=== PATIENT | male | born 1950 | race Caucasian/White ===

== ENCOUNTER 2024-08-16 10:41 | Day surgery (SDC) | payer MEDICARE, OTHER, SELFPAY ==
[2024-08-16] VITALS (9 sets, daily range): BP systolic 126–158; BP diastolic 64–134; BMI 31.2
[2024-08-16] MEDS: NSS 313 ML IV (11:31)
--- NOTE | 2024-08-16 16:02 | CONSULT.STRU ---
Consultation
-
Date/Time Consultation Requested: 08/16/2024
Date/Time Consultation Performed: 08/16/2024
Requesting Provider: Kar Estrella
Performing Provider: SUDHAKAR Farnsworth
Reason for Consultation: Aortic stenosis
Patient History
Physicians
Family Physician: Shanon Rios
Outpatient Nuclear Radiation Engineer: Jaun Rincon
Primary Nuclear Radiation Engineer: Jaun Rincon
History of Present Illness
Mr. Pabon is a 74 year old man with history significant for HTN, HLD, pre DM, referred for evaluation of severe symptomatic aortic stenosis. He was recently noted to have a murmur for the first time, which led to a follow up echocardiogram
demonstrating high gradient aortic stenosis. Notable for AV PG/M/66, HANS: 0.85, No AI, EF: 65-70%. He does not exercise, but notes that compared to 6-12 months ago, he is more winded with moderate activity such as carrying heavy objects up
stairs.�He also complains of heaviness in his chest with this exertion. He denies lightheadedness/dizziness/syncope, orthopnea, LE edema. He does not recall ever being told he had a heart murmur before recently. Patient underwent cardiac cath today
with minimal coronary disease.
Reviewed the pathophysiology of aortic stenosis. Discussed treatment options including SAVR and TAVR. Explained lifetime planning when discussing treatment options. Reviewed evaluation process of follow up BMP, CT TAVR scan, CT surgery consult and
Heart Team discussion. Scheduled his CT scan and surgery consult appointments. Allowed for and answered questions.
Past Medical History
Past Medical History: CAD, HTN, Psychiatric (generalized anxiety disorder) and Other (Osteoarthritis, Nephrolithiasis)
Past Surgical History
Past Surgical History: Orthopedic (L-SUSAN) and Other (hernia repair, umbilical hernia repair)
Dental History
Regular Dental Care: Dr. Douglas Ladd
Family History
Mother: at Age (81yo)
Father: at Age (72yo)
Social History
Alcohol: Daily
Drug: None
Tobacco: Former Smoker
Personal:
Living: With Spouse
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
Allergies
Allergy/AdvReac Type Severity Reaction Status Date / Time
No Known Drug Allergies Allergy Unknown Verified 08/16/24 11:11
Home Medications
�Medication �Instructions �Recorded �Confirmed �Type
atorvastatin 10 mg tablet 10 mg PO DAILY 08/16/24 08/16/24 History
doxycycline hyclate 20 mg tablet 20 mg PO BID 08/16/24 08/16/24 History
escitalopram oxalate 10 mg tablet 10 mg PO DAILY 08/16/24 08/16/24 History
valsartan 80 mg tablet 80 mg PO DAILY 08/16/24 08/16/24 History
STS%
STS %: 0.989%
Review of Systems
-
History Source: Patient
General: Reports No Symptoms; Denies Fever, Weight Gain, Weight Loss or Fatigue
HEENT: Reports No Symptoms
Respiratory: Reports MELGAR; Denies PND
Cardiac: Reports Palpitations (occasional 'fluttering') and Other (chest heaviness when he is experiencing MELGAR); Denies Edema
Abdomen/GI: Reports No Symptoms; Denies Abdominal Pain, Reflux, Indigestion, Nausea or Vomiting
: Reports No Symptoms
Musculoskeletal: Reports No Symptoms
Skin: Reports No Symptoms
Neurological: Reports No Symptoms; Denies CVA, TIA, Headaches, Syncope or Dizzy
Vascular: Reports No Symptoms; Denies Claudication
Physical Exam
Vital Signs
Temp 98.0 F 08/16/24 11:10
Temp route: Temporal 08/16/24 11:10
Pulse 75 08/16/24 11:10
Resp Rate 18 08/16/24 11:10
Blood pressure 128/75 08/16/24 11:10
Blood pressure extremity used: Left upper arm 08/16/24 11:10
Position: Lying 08/16/24 11:10
SaO2 97 08/16/24 11:10
Oxygen Mode of Delivery Room air 08/16/24 11:10
Can the patient verbally communicate their pain? Yes 08/16/24 11:10
Actual Weight 104.32 kg 08/16/24 11:10
Body Mass Index (BMI) 31.2 08/16/24 11:10
Labs
08/10/2024:
H/H: 14.6/43.2
WBC: 8.3
Platelets: [id number]
BUN/Creat: 16/0.91
GFR: >89
Diagnostic Studies
08/01/2024 Echocardiogram:
CONCLUSIONS
Technically limited and suboptimal study.
Mildly dilated aortic root with other chamber sizes normal.
Mild concentric LVH by visual inspection.
Normal right and normal to hyperdynamic left ventricular systolic function.
Grade 1 diastolic dysfunction.
Severe aortic stenosis with no aortic insufficiency.
Indications:
Cardiac murmur, unspecified, Nonrheumatic aortic (valve) stenosis
Rhythm: Sinus
Portable Study:
Technical Quality: Technically difficult study
Contrast: None
BP: 130 / 70
PROCEDURE
A complete Transthoracic Echocardiogram was performed utilizing two-dimensional
evaluation with color flow and spectral Doppler analysis.
FINDINGS
Left Ventricle
Normal left ventricular size and by visual inspection there appeared to be mild
concentric LVH. Normal to hyperdynamic left ventricular systolic function and
wall motion. Estimated ejection fraction range of 65 to 70%. Grade 1
diastolic dysfunction.
Right Ventricle
Normal right ventricular size and systolic function.
Left Atrium
Normal left atrial size.
Right Atrium
Normal right atrial size.
Mitral Valve
Mitral valve is suboptimally visualized but grossly appeared to have adequate
excursion. No mitral regurgitation detected.
Aortic Valve
Aortic valve was suboptimally visualized. Cannot rule out bicuspid valve..
The valve is calcified and deformed with decreased opening. Peak and mean
gradients across aortic valve were 82 and 66 mmHg respectively. Calculated
aortic valve area is 0.85 and with a dimensionless index of 0.23. These are
all consistent with severe aortic stenosis. No aortic insufficiency detected.
Tricuspid Valve
Tricuspid valve appeared to be grossly normal. Trivial tricuspid
regurgitation. RV systolic pressure could not be estimated due to the
insufficient regurgitant envelope.
Pulmonic Valve
Pulmonic valve not well-visualized. No pulmonic insufficiency detected.
Pericardium\\Pleura
There was a significant anterior echo-free space most likely representing
epicardial fat. No significant pericardial effusion detected.
Aorta
Aortic root may have been mildly dilated.
Other Finding
The IVC was not well-visualized and therefore right atrial pressure cannot be
estimated.
The interatrial septum is grossly intact with no obvious shunt or aneurysm.
MEASUREMENTS (Male / Female) Normal Values
2D ECHO
LV Diastolic Diameter PLAX 4.2 cm 4.2 - 5.9 / 3.9 - 5.3 cm
LV Systolic Diameter PLAX 2.8 cm
IVS Diastolic Thickness 1.0 cm 0.6 - 1.0 / 0.6 - 0.9 cm
LVPW Diastolic Thickness 1.0 cm 0.6 - 1.0 / 0.6 - 0.9 cm
LV Relative Wall Thickness 0.5
RV Internal Dim ED PLAX 3.4 cm
LVOT Diameter 2.2 cm
M-MODE
Aortic Root Diameter MM 3.8 cm
LA Systolic Diameter MM 3.8 cm
LA Ao Ratio MM 1.0
AV Cusp Separation MM 1.6 cm
DOPPLER
AV Peak Velocity 453.3 cm/s
AV Peak Gradient 82.2 mmHg
AV Mean Gradient 65.6 mmHg
AV Velocity Time Integral 119.8 cm
LVOT Peak Velocity 111.3 cm/s
LVOT Peak Gradient 5.0 mmHg
LVOT Velocity Time Integral 28.1 cm
LVOT Stroke Volume 102.0 cm3
LVOT Stroke Volume Index 43.3 ml/m2 empty
LVOT Cardiac Index 3506.3 cm3/min
AV Area Cont Eq vti 0.9 cm2
AV Area Cont Eq pk 0.9 cm2
Mitral E Point Velocity 90.2 cm/s
Mitral A Point Velocity 103.5 cm/s
Mitral E to A Ratio 0.9
TR Peak Velocity 188.6 cm/s
TR Peak Gradient 14.2 mmHg
Right Ventricular Systolic Press 17.2 mmHg
Exam
General: Well Developed, Well Nourished, No Apparent Distress and Comfortable
HEENT: Normocephalic, PERRLA and EOMI
Neck: Trachea Midline
Respiratory: Clear; Negative Wheezes, Crackles or Rhonchi
Cardiac: S1/S2, Regular Rhythm and Murmur (Grade III/ systolic ejection murmur)
GI: Soft, Non Tender, Non Distended and Normal Bowel Sounds
Rectal: Deferred by Provider
Skin: Warm and Dry
Neuro: AO x 3, No Motor Deficits and Nonfocal/Grossly Intact
Extremities: Pulses (+2 PT pulses bilateral, faintly palpable DP pulses); Negative Lower Level Edema
Psych: Calm
Assessment / Plan
-
Assessment:
Severe aortic stenosis, possible bicuspid valve
Plan:
-Continue evaluation for treatment plan as outpatient
-Repeat BMP on 08/22/2024
-CT TAVR scan 08/29/2024
-CT surgery consult with Dr. Huerta 09/02/2024
-Dental Clearance
-Heart Team discussion
Procedure Type:�Isolated AVR
Perioperative Outcome Estimate %
Operative Mortality 0.898%
Morbidity & Mortality 5.18%
Stroke 0.878%
Renal Failure 0.807%
Reoperation 3.11%
Prolonged Ventilation 2.24%
Deep Sternal Wound Infection 0.06%
Long Hospital Stay (>14 days) 2.05%
Short Hospital Stay (<6 days)* 66.3%
Data Reviewed
-
EKG: Report Reviewed by me
School Physical Therapist: Discussed with Physician
Echo: Report Reviewed by me and Discussed with Physician
Labs: Labs Reviewed by me
Old Records: Reviewed (Cardiology office notes)
Total Time Spent with Patient (in minutes): 30
--- NOTE | 2024-08-16 18:21 | ITS.CL.PN ---
Reflexologist - Procedure Note
Procedure
Procedure Note:
CARDIAC CATHETERIZATION REPORT
Date of Procedure: 08/16/2024
Referring: Dr. Jaun Rincon
Indication: severe aortic stenosis
PROCEDURE(S)
1. right heart catheterization
2. left heart catheterization
3. coronary angiography
ACCESS
1. 6F right radial artery (closure: radial band)
2. 5F right antecubital vein (closure: manual hemostasis)
CATHETERS
1. 5F [place]
2. 6F JR4
3. 6F JL3.5
MODERATE SEDATION: 50 minutes of moderate sedation was utilized. An independent quality engineer medical device was present to assist with and help manage the patient's level of consciousness and physiologic status.
ULTRASOUND GUIDED VASCULAR ACCESS (right radial artery): Ultrasound was utilized for vascular access. The vessel was visualized under ultrasound and noted to be patent. An image of the vessel was stored permanently in the patient's medical record.
Under direct ultrasound guidance, vascular access was obtained using a modified Seldinger technique and a 6 Marshallese sheath was placed.
ULTRASOUND GUIDED VASCULAR ACCESS (right brachial vein): Ultrasound was utilized for vascular access. The vessel was visualized under ultrasound and noted to be patent. An image of the vessel was stored permanently in the patient's medical record.
Under direct ultrasound guidance, vascular access was obtained using a modified Seldinger technique and a 5 Marshallese sheath was placed.
HEMODYNAMIC DATA
LV 212/-7 (EDP 18) mmHg
AO 114/77 (mean 96) mmHg
RA 8 mmHg
RV 33/7 (EDP 11) mmHg
PA 33/15 (mean 21) mmHg
PCWP 11 mmHg
SaO2 94.1%
SvO2 71.5%
Hb 13.9 g/dL
CO/CI 6.6/2.9 L/min/m2
SVR 1064 dsc*-5
PVR 1.5 Wood units
mean gradient (via simultaneous pressure tracing): 68 mmHg
SVI 38 mL/m2
HANS 0.85 cm2 (AVAi 0.38 cm2/m2)
CORONARY ANGIOGRAPHY
Dominance: right
LM: Large and normal
LAD: Large vessel giving rise to a medium caliber D1 and large D2. There is focal 60% ostial stenosis of the D1 and otherwise mild luminal irregularities.
LCx: Large vessel giving rise to a large OM1, large OM2, and large LPL branch. There is a focal 50% stenosis in the mid body of OM1, and otherwise mild luminal irregularities.
RCA: large vessel with an inferiorly directed takeoff giving rise to a moderate caliber RPDA and small RPL branch. There are mild luminal irregularities.
RADIATION: dose 881 mGy; DAP 59.5 Gy*cm2; fluoroscopy time 15.5 min
CONCLUSIONS
1. coronary artery disease as described with focal 60% ostial stenosis of D1 and otherwise non-obstructive CAD in a right dominant system
2. mildly elevated biventricular filling pressures, normal PA pressure, and normal cardiac output
3. severe to critical aortic stenosis with mean gradient 68 mmHg, HANS 0.85 cm2
RECOMMENDATIONS
1. expectant management after cardiac catheterization via right radial artery approach
2. further workup for TAVR/SAVR with CTA and CT surgical consultation
Copy to: Dr. Jaun Rincon MD (slag motor operator); Shanon Rios NP (PCP)
Signed: Kar Estrella MD, PhD
== END 2024-08-16 18:45 | disposition home or self-care (01) ==
LOC: CATH 10:41
PROVIDERS: ATTENDING PHYSICIAN Student in an Organized Health Care Education/Training Program; OTHER PHYSICIAN Internal Medicine Cardiovascular Disease
DX: I35.0 Nonrheumatic aortic (valve) stenosis (principal); I25.10 Atherosclerotic heart disease of native coronary artery without angina pectoris; I10 Essential (primary) hypertension; M19.90 Unspecified osteoarthritis, unspecified site; F41.9 Anxiety disorder, unspecified; Z87.891 Personal history of nicotine dependence; Z79.899 Other long term (current) drug therapy; E78.5 Hyperlipidemia, unspecified; Z98.890 Other specified postprocedural states
CPT/HCPCS: 99152; 99153; 76937; 93460; C1769; C1894; Q9967

== ENCOUNTER → 2024-08-29 08:48 | Outpatient (REF) | payer MEDICARE, OTHER, SELFPAY | LOC: RAD 08:48 | PROVIDERS: ATTENDING PHYSICIAN Nurse Practitioner Adult Health | DX: I35.0 Nonrheumatic aortic (valve) stenosis (principal) | CPT/HCPCS: 74174; 75572; Q9967 ==

== ENCOUNTER 2024-09-26 07:40 | Inpatient (IN) | payer MEDICARE, OTHER, SELFPAY ==
[2024-09-18 12:04] VITALS: BMI 33.3
[2024-09-18 12:45] LABS: % Eosinophils 3.1 % (0-6); % Immature Granulocytes 0.3 % (0-0.5); % Lymphocytes 36.1 % (20.5-51.1); % Monocytes 7.4 % (1.7-9.3); % Neutrophils 52.1 % (42.2-75.2); Absolute Basophils 0.1 10^3/uL (0-0.2); Absolute Eosinophils 0.2 10^3/uL (0-0.7); Absolute Lymphocytes 2.6 10^3/uL (1.2-3.4); Absolute Monocytes 0.5 10^3/uL (0.1-0.6); Absolute Neutrophils 3.7 10^3/uL (1.4-6.5); Hematocrit 41.3 % (39.0-52.0); Hemoglobin 14.5 g/dL (13.0-18.0); Mean Corp Hgb Conc. 35.1 g/dL (33.0-37.0); Mean Corpuscular Hgb 35.1 pg (27.0-31.0); Mean Platelet Volume 9.9 fL (7.4-10.4); Nucleated Red Blood Cells % 0 % (-); Platelet Count 153 10^3/uL (130-400); Red Blood Cell Count 4.13 10^6/uL (4.70-6.10); Red Cell Dist. Width 12.4 % (11.5-14.5); White Blood Cell Count 7.1 10^3/uL (4.8-10.8)
[2024-09-18 12:58] LABS: ALT (SGPT) 47 U/L (0-50); AST (SGOT) 31 U/L (17-59); Albumin 4.9 g/dl (3.5-5.0); Alkaline Phosphatase 64 U/L (38-126); Blood Urea Nitrogen 19 mg/dl (9-20); Calcium 9.6 mg/dl (8.4-10.2); Carbon Dioxide 26 mmol/L (22-30); Chloride 97 mmol/L (98-107); Direct Bilirubin 0.3 mg/dl (0.0-0.4); Estimated Creatinine Clearance 91 ml/min; Glucose 115 mg/dl (70-99); Potassium 4.3 mmol/L (3.5-5.1); Sodium 133 mmol/L (135-145); Total Bilirubin 1.3 mg/dl (0.2-1.3); Total Protein 7.5 g/dl (6.3-8.2); eGFR > 60.00
[2024-09-18 13:01] LABS: INR 0.97; PT 13.4 Sec (11.4-14.6)
[2024-09-18 13:44] LABS: Urine Albumin 1+ (Neg - Trace); Urine Bilirubin Negative (Negative); Urine Character Clear (Clear); Urine Color Yellow; Urine Glucose Negative (Negative); Urine Ketone Negative (Negative); Urine Leukocyte Negative (Negative); Urine Nitrite Negative (Negative); Urine Occult Blood 3+ (Negative); Urine Urobilinogen Negative (Neg - 1+)
--- NOTE | 2024-09-18 14:13 | CM ---
CM following for DC planning needs.
Met w/ patient + spouse, Jelena during PATs.
Pt. resides w/ spouse in a private, split level home. There are 0 FLOWER. There are 4-6 steps to main living area, then 6 steps to bedroom.
Pt. is functionally indep. at baseline w/ ADLs, mobility without the use of any assisted device.
Pt. works, drives.
Pt. has RX plan and uses [facility] [employer] in [place] for prescription needs.
Reviewed pre and post op routines.
Soap, shower instructions, Cardiac Surgery booklet provided.
Discussed post op restrictions to include lifting, driving, flying and sternal precautions.
Discussed post op MD appointments, Cardiac Rehab and visit from CT Transitional Care RN.
Plan is for CT Surgery 09/26.
Anticipated DC plan is for home with CT Transitional Care RN.
CM to follow.
[2024-09-18 14:53] LABS: Glycohemoglobin (HgbA1c) 5.1 % (4.0-5.6)
[2024-09-18 15:23] LABS: Urine Squamous Cell 0-2 /LPF (Few)
[2024-09-18 15:24] LABS: Urine Amorphous Seen; Urine Hyaline Cast 0-2 /LPF (0-2)
[2024-09-18 15:25] LABS: Urine White Cell 0-2 /HPF (0-5)
[2024-09-26] VITALS (11 sets, daily range): BP systolic 92–136; BP diastolic 53–78
--- NOTE | 2024-09-26 07:45 | W.CVOR.SURPR ---
CVOR Surgeon Immed Pre Op
-
I have examined this patient prior to performance of the scheduled procedure.
The patient's condition is unchanged from the time of the dictated/written History and
Physical and the patient is able to undergo the scheduled procedure.
SAVR (biological) +/- SVG-Diag + MARK Clip
[2024-09-26] MEDS: PROTONIX 40 MG PO (07:53)
[2024-09-26] MEDS: MAGNESIUM OXIDE 500 MG PO (07:53)
[2024-09-26] MEDS: LOPRESSOR 25 MG PO (07:53)
--- NOTE | 2024-09-26 08:14 | PTCARENOTE ---
received pt as SDA into 2267, admissions questions, medication list and plan of care reviewed w the pt and his . 2 Showers REEL CART OPERATOR confirmed. Pt has been NPO since . Pt clipped and prepped w [facility].
[2024-09-26] MEDS: BACTROBAN 2% OINTMENT 1 APPLIC NASAL ×2 (08:23→20:19)
[2024-09-26] MEDS: XYLOCAINE 1% 2 ML INFIL (08:24)
--- NOTE | 2024-09-26 08:50 | PTCARENOTE ---
pre op ABO drawn and sent to the lab.
--- NOTE | 2024-09-26 08:55 | CM ---
Patient in OR today for planned AVR.
Reviewed pre-admission assessment. Pt. resides w/ spouse in a private, split level home; 4-6 steps btw levels.
Pt. is functionally indep. prior to admission w/ ADLs, mobility without the use of any assisted device.
Antic. DC plan is for home w/ CT Transitional Care RN.
CM to follow.
[2024-09-26 11:37] LABS: ACT+ - POC 107 Seconds (82-134)
[2024-09-26 12:07] LABS: Urine Albumin 2+ (Neg - Trace); Urine Bilirubin Negative (Negative); Urine Character Clear (Clear); Urine Color Yellow; Urine Glucose Negative (Negative); Urine Ketone Negative (Negative); Urine Leukocyte Negative (Negative); Urine Nitrite Negative (Negative); Urine Occult Blood 4+ (Negative); Urine Urobilinogen 1+ (Neg - 1+)
[2024-09-26 12:28] LABS: B.E. - POC -0.8 mmol/L; Glucose - POC 126 mg/dl (70-99); HCO3 - POC 24 mmol/L (21-28); Hematocrit - POC 37 % PCV (42-52); Hemodilution- POC No; Hemoglobin Calculated - POC 12.7; O2 Saturation %Calculated-POC 99.5 % (94-98); PCO2 - POC 37 mmHg (35-48); PO2 - POC 162 mmHg (83-108); Potassium - POC 4.2 mmol/L (3.5-5.1); Sodium - POC 142 mmol/L (136-145); Specimen Type - POC Arterial; pH - POC 7.41 (7.35-7.45)
[2024-09-26 12:40] LABS: ACT+ - POC 761 Seconds (82-134)
[2024-09-26 13:15] LABS: B.E. - POC 1.1 mmol/L; Glucose - POC 127 mg/dl (70-99); HCO3 - POC 26 mmol/L (21-28); Hematocrit - POC 33 % PCV (42-52); Hemodilution- POC Yes; Hemoglobin Calculated - POC 11.2; Ionized Calcium - POC 0.94 mmol/L (1.15-1.33); Lactate - POC 0.46 mmol/L (0.36-0.75); PCO2 - POC 39 mmHg (35-48); PO2 - POC 459 mmHg (83-108); Potassium - POC 5.4 mmol/L (3.5-5.1); Sodium - POC 139 mmol/L (136-145); Specimen Type - POC Arterial; pH - POC 7.42 (7.35-7.45)
[2024-09-26 13:31] LABS: ACT+ - POC 756 Seconds (82-134)
[2024-09-26 13:44] LABS: B.E. - POC 1.6 mmol/L; Glucose - POC 183 mg/dl (70-99); HCO3 - POC 26 mmol/L (21-28); Hematocrit - POC 33 % PCV (42-52); Hemodilution- POC Yes; Hemoglobin Calculated - POC 11.3; Ionized Calcium - POC 1.01 mmol/L (1.15-1.33); Lactate - POC 0.87 mmol/L (0.36-0.75); PCO2 - POC 38 mmHg (35-48); PO2 - POC 376 mmHg (83-108); Potassium - POC 5.5 mmol/L (3.5-5.1); Sodium - POC 138 mmol/L (136-145); Specimen Type - POC Arterial; pH - POC 7.44 (7.35-7.45)
[2024-09-26 13:57] LABS: ACT+ - POC 647 Seconds (82-134)
[2024-09-26 14:17] LABS: B.E. - POC 2.2 mmol/L; Glucose - POC 172 mg/dl (70-99); HCO3 - POC 26 mmol/L (21-28); Hematocrit - POC 35 % PCV (42-52); Hemodilution- POC Yes; Hemoglobin Calculated - POC 11.8; O2 Saturation %Calculated-POC 99.9 % (94-98); PCO2 - POC 39 mmHg (35-48); PO2 - POC 272 mmHg (83-108); Potassium - POC 4.7 mmol/L (3.5-5.1); Sodium - POC 140 mmol/L (136-145); Specimen Type - POC Arterial; pH - POC 7.44 (7.35-7.45)
[2024-09-26 14:26] LABS: ACT+ - POC > 1003 Seconds (82-134)
[2024-09-26 14:27] LABS: Urine White Cell 0-2 /HPF (0-5)
[2024-09-26 14:27] LABS: ACT+ - POC 120 Seconds (82-134)
[2024-09-26 14:28] LABS: Urine Bacteria Few (Negative)
[2024-09-26 14:59] LABS: B.E. - POC 0.5 mmol/L; Glucose - POC 125 mg/dl (70-99); HCO3 - POC 26 mmol/L (21-28); Hematocrit - POC 32 % PCV (42-52); Hemodilution- POC Yes; Hemoglobin Calculated - POC 10.9; Ionized Calcium - POC 1.28 mmol/L (1.15-1.33); Lactate - POC 1.92 mmol/L (0.36-0.75); O2 Saturation %Calculated-POC 99.9 % (94-98); PCO2 - POC 45 mmHg (35-48); PO2 - POC 320 mmHg (83-108); Sodium - POC 142 mmol/L (136-145); Specimen Type - POC Arterial; pH - POC 7.38 (7.35-7.45)
--- NOTE | 2024-09-26 15:12 | W.PN.CT.SURG ---
CT Surgery Operative Note
-
CARDIAC SURGERY OPERATIVE REPORT
Preoperative Diagnosis: Severe aortic valve stenosis with bicuspid valve morphology
Postoperative Diagnosis: Same
Procedure(s) Performed:
1. Standard sternotomy with aortic and right atrial cannulation
2. CABG x 1 [aorta to RSVG to large diagonal]
3. Surgical aortic valve replacement [29 mm bioprosthesis]
4. Left atrial appendage exclusion [45 mm device]
5. Transesophageal echocardiography
6. Placement of temporary ventricular pacing wires
Date of Surgery: 09/26/2024
Comorbidities:
1. Severe aortic valve stenosis, bicuspid valve morphology, type I with heavily fused left right
2. Single-vessel coronary artery disease
3. Hyperlipidemia
4. Hypertension
5. Moderate LVH
6. Osteoarthritis
7. ED
8. Nephrolithiasis
9. Prediabetes
Attending Surgeon: Damian Huerta MD, MS
Assistants: Monica Stewart PA-C (present and necessary to director of first impressions, retraction, suction, exposure, suture management, and wound closure under my direction), Damian Dennison PA-C (open vein harvest), Gavin Bangura MD (Cardiac Surgery Consultant In Ergonomics And Safety)
Anesthesiology: Wilbert Weller MD and Sveta Maldonado CRNA
Scrub and Circulating RNs: Comfort Keller RN, Magdalene Verdugo RN
Fuel Distribution System Operator: Erich Peguero CCP
Anesthesia: GETA
EBL: per perfusion records
Products: None, 2 bowls of cell saver scavenged from field
CPB Time: 89 minutes
Aortic Cross Clamp Time: 76 minutes
Indication(s) for Procedures: This is a 74-year-old male with severe bordering on critical aortic valve stenosis with mean gradients in the 60s, symptomatic, he was initially referred for TAVR versus SAVR evaluation. Given his bicuspid valve
morphology, heavily calcified aortic valve, and relatively robust state at the age of 74, multidisciplinary discussion was to pursue surgical valve replacement as part of his lifetime management. As he had single-vessel coronary artery disease at
the ostial diagonal which was a large size vessel covering a decent territory, I plan to intervene on his coronary artery as well.
Aortic Valve Description: Heavily calcified, left right fusion with calcium infiltrating into the base of the annulus at the left coronary cusp and nonright commissure, left and right coronary ostium within normal anatomic positions and relatively
high up in the sinuses
Findings: His left ventricular ejection fraction preoperatively was 65%. He had moderate LVH and no regional wall motion abnormalities. Following surgery his EF remained the same at 65% with no new regional wall motion abnormalities. His coronary
artery bypass grafting was done at the diagonal vessel and test dosing of antegrade yielded at least 60 cc a minute at a pressure of 80 mmHg. There is good hemostasis and flow. His aortic valve was excised in the usual fashion and replaced with a
total of 16 nonpledgeted 2 Ethibond sutures placed circumferentially and secured into place with core knots. His left atrial appendage was verified to be free of any thrombus or debris preoperatively and found to be totally occlusive
postoperatively. Of note he did have a moderate degree of left ventricular hypertrophy. Following surgery he did not require any blood products, he did not require any inotropic support, cardiac index was over 2, and he was in sinus rhythm. His
aortic valve had a low mean gradient and only trace intra valvular AI.
Specimen(s): Aortic valve leaflets.
Prosthesis:
1. 45 mm left atrial appendage clip, serial #[id number]
2. 29 mm Goodrich Inspiris Resilia aortic valve, serial #[id number]
Description of Procedure: The patient was taken to the operating room. Their identity and procedure to be performed were verified and they were positioned supine on the operating table. Induction via general anesthesia with endotracheal intubation
was performed and central venous access and arterial monitoring were inserted. A preoperative transesophageal echocardiogram was performed to assess cardiac function and valvular function. The patient was then prepped and draped from chin to feet in
a sterile fashion. A preoperative time-out was performed with all members of the team present. A midline chest incision was performed along with median sternotomy. Simultaneous open vein harvest of the right lower extremity was performed for short
segment. The innominate vein was isolated. Full heparinization was given (a total of 55,000 units). We created a pericardial well. The aortic cannulation site was chosen where it was soft, pliable, and free of calcium. Cannulation was performed
with an arterial cannula in the ascending aorta and a triple-stage venous cannula through the right atrial appendage. The arterial cannula line had an appropriate bounce and correlating pressures with test dosing. Next, a root vent/antegrade cannula
was inserted into the ascending aorta. The ACT was confirmed to be over 400 and retrograde autologous priming was performed before commencing cardiopulmonary bypass. The pulmonary artery was away from the aorta to facilitate a clamp site
and aortotomy. A left ventricular vent was placed at the right superior pulmonary vein and secured. The aortic cross-clamp was placed after decreasing the flow on the bypass and mean arterial pressure. A total of 1.2L initial dose of antegrade
[place] cardioplegia solution was given and planned for re-dosing every 75 minutes as necessary. There was rapid electro-mechanical arrest of the heart at 400 cc of cardioplegia. The left ventricle was observed for distention on echocardiogram and
manual palpation. Cold slush was placed into a sponge and topically on the RV while we systemically cooled to 34 degrees centigrade. Once the heart was fully arrested it was rotated medially in the left atrial appendage was clipped flush the base.
An ice soaked sponges and placed laterally along the left side of the heart in order to facilitate exposure of the diagonal vessel. This was dissected with a [place] blade and a small coronary arteriotomy was created. An end-to-side anastomosis was
done with vein graft in a running fashion with 7-0 Prolene. Test dosing antegrade demonstrated excellent flow and hemostasis.
Carbon dioxide was used to flood the field. We manually identified the location of the right coronary take off. An aortotomy was made approximately 2cm above the sinotubular junction. The location of both left and right coronary vessels were
visualized in the root.The leaflets were excised and sent for pathological assessment. The annulus was debrided of any calcium being mindful of the annulus and membranous septum. The root and left ventricular outflow tract were thoroughly irrigated
to remove any debris. A total of 16 non-pledgeted 2-0 ethibond inverted annular sutures were placed [id number] circumferentially. These were brought through the sewing cuff of the prosthetic valve which as then parachuted into place. The left and
right coronary ostia were visualized and were unobstructed by the valve. A Cor-Knot device was used to secure the annular sutures. The valve was inspected and was well seated. The aortotomy was approximated with 4-0 prolene in two layers. A single
aortotomy was created above the suture line and enlarged with a 4.0 mm punch. An end-to-side anastomosis was created with 6-0 Prolene in a running fashion for the proximal anastomosis. De-airing maneuvers were performed and temporary bipolar
ventricular pacing wires were placed on the base of the right ventricle. The patient was placed in a Trendelenburg position and flows on bypass were lowered. The aortic cross clamp was removed and flows were slowly brought back up. The aortotomy
appeared hemostatic. Transesophageal echocardiography revealed no significant paravalvular leak and appropriate prosthetic function. Once de-airing was satisfactory, the left ventricular and root vents were removed. After verifying acceptable
parameters, we initiated weaning from cardiopulmonary bypass. Once we were off cardiopulmonary bypass, the venous cannula was clamped and removed. A test dose of protamine was administered and the patient was monitored for any adverse reaction
before resuming protamine. Once half of the protamine dose was delivered, pump suckers were turned off and the systolic blood pressure was lowered for aortic decannulation. The aortic cannula was removed and pursestrings were tied down. All
cannulation sites were oversewn with a 4-0 prolene. The aortotomy suture line was inspected and hemostasis was confirmed. A single repair stitch was placed towards the right side apex of the suture line using 4-0 Prolene with pledget reinforcement.
Mediastinal hemostasis was obtained. Two 24Fr [address] drains were placed within the pericardium. The sternum was approximated with 4#7 single and 3 #8 double stainless steel wires. Fascia was approximated with #1 vicryl suture. The subcutaneous,
dermis and epidermis were closed in layers in a running fashion. The skin wound was cleansed and dressed.
All instrument, sponge, and needle counts were confirmed to be correct x 2 at the end of the operation. The patient was transferred to the cardiac intensive care unit in critical but stable condition.
I, Dr. Damian Huerta, was present, scrubbed for, and performed all critical elements of this procedure.
Damian Huerta MD, MS
Cardiothoracic Surgeon
[facility]
This operative dictation was created using the [employer] dictation system. Please excuse any grammatical, typographical, or 'sound alike' errors
--- NOTE | 2024-09-26 15:17 | W.PN.CD ---
Addendum entered and electronically signed by Everardo Thayer MD 09/27/24 09:00:
I saw and examined the patient.
The ORTHOPEDICALLY IMPAIRED TEACHER's note was reviewed and I agree with the note.
Comment: Patient seend and examined on September 26:
- wean inotropes as able
- cont post-op care
Original Note:
Today's Communication / Plan
-
Close post-op monitoring and care with weaning of drips and vent as tolerated per CT surgery/CVICU protocol
Impression / Plan
-
74 y/o male with HTN, HLD, preDM, CAD, and severe is now s/p AVR/CABG.
Severe (bicuspid) and CAD s/p CABG x 1 (aorta to RSVG to large diagonal), AVR (29 mm bioprosthesis), and MRAK exclusion 09/26/24, Dr. Huerta
-intubated and sedated post-op
-remains on Levophed
-CT and Noel in place
-post-op EKG and tele stable in SR
-ASA, statin, BB
HTN:
-on ARB as OP
-monitor post-op
HLD:
-statin
Physical Exam
Vital Signs/Labs
Vital Signs
Temp Pulse Resp BP Pulse Ox
98.1 F 72 18 136/78 97
09/26/24 07:10 09/26/24 07:10 09/26/24 07:10 09/26/24 07:10 09/26/24 07:10
PT 13.4 Sec (11.4-14.6) 09/18/24 12:16
INR 0.97 09/18/24 12:16
APTT 30.0 Sec (23.4-35.0) 09/18/24 12:16
Physical Exam
Constitutional: No acute distress
EENT: Anicteric
Cardiovascular: Rhythm & rate is regular
Respiratory: Other (intubated/ventilated)
Neuro/Psych: Other (sedated)
Other: Skin (midsternal incision well-approximated- no drainage or swelling)
Data Reviewed
-
Date of Service: September 26, 2024
EKG: Tracing Personally Visualized and interpreted (NSR with SA LAFB- no acute ischemic EKG abnormality)
Labs: Other (updated labs pending)
--- NOTE | 2024-09-26 15:25 | CON.INTV ---
Consultation
Consultation Request
Date/Time Consultation Requested: 09/26/2024 - 145
Date/Time Consultation Performed: 09/26/2024 - 151
Requesting Provider: SUDHAKAR Fonseca
Performing Provider: Dr. Mascorro
Reason for Consultation: s/p CABG + SAVR
Medical History
-
Chief Complaint: Elective CABG + SAVR
History of Present Illness:
74-year-old male former tobacco smoker with a past medical history of nonrheumatic aortic valve stenosis, CAD, hypertension, hyperlipidemia, MICHAELA, ED, chronic productive cough, and osteoarthritis who presents for elective CABG + surgical aortic valve
replacement. Patient known to the cardiothoracic surgery service with last visit on 09/12/[address] Huerta. Transthoracic echo on 08/01/2024 showed a suspected bicuspid valve with peak/mean gradients of 82/66 mm, respectively with a calculated HANS
of 0.85 cm�. Left and right heart catheterization on 08/16/2024 showed a focal 60% ostial stenosis of D1 with otherwise nonobstructive CAD, with mildly elevated biventricular filling pressures and severe to critical aortic stenosis with a mean
gradient of 68 mmHg with an HANS of 0.85 cm�. Risks and benefits of a cardiothoracic intervention were discussed, and the patient agreed to a procedure. Today he underwent a CABG x 1, with a surgical aortic valve replacement with a 29 mm
bioprosthesis and a left atrial appendage exclusion with a 45 mm device. There were no complications, the patient was transferred to CVICU for further care and Flooring Helper services consulted for additional management/recommendations.
I saw the patient in the CVICU and he was resting in bed, intubated on SIMV at 14/500/10/40%, with PIP: 19 cmH2O, VTe 425 cc and breathing at 15 breaths/min. Heart rate 56, BP via A-line: 115/58, BP via NIBP: 100/53, PAP 38/22, and CO/CI:
4.61/2.03. Mediastinal chest tubes x [address]. Currently on insulin drip at 3 units/hr, Levophed at 0.5 mcg/min and Precedex at 0.5 mcg/kg/hr.
PMHx: Hyperlipidemia, hypertension, nephrolithiasis, MICHAELA, osteoarthritis, ED, chronic productive cough, former tobacco smoker (quit 2010), aortic stenosis, CAD
PSHx: Left total hip arthroplasty, umbilical hernia repair, colonoscopy
Past Medical History
Past Medical History: Other (Above as per HPI)
Past Surgical History: Other (Above as per HPI)
Social History
Tobacco: Former Smoker (Quit 2010)
Alcohol: Occasional
Drug: None
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
Family History
Family History: Reviewed & Not Pertinent
Allergies / Home Medications
Allergies
Allergy/AdvReac Type Severity Reaction Status Date / Time
No Known Allergies Allergy Unverified 09/17/24 09:59
Home Medications
�Medication �Instructions �Recorded �Confirmed �Last Taken �Type
atorvastatin 10 mg tablet 10 mg PO DAILY High Cholesterol 08/16/24 09/26/24 09/25/24 History
doxycycline hyclate 20 mg tablet 20 mg PO BID Infection 08/16/24 09/26/24 09/25/24 History
escitalopram oxalate 10 mg tablet 10 mg PO DAILY Mental 08/16/24 09/26/24 09/25/24 History
Health/Anxiety
valsartan 80 mg tablet 80 mg PO DAILY Blood Pressure 08/16/24 09/26/24 09/22/24 History
cholecalciferol (vitamin D3) 25 25 mcg PO DAILY Supplement 09/17/24 09/26/24 09/25/24 History
mcg (1,000 unit) tablet (Vitamin
D3)
aspirin 81 mg chewable tablet 81 mg PO DAILY Blood Clot 09/26/24 09/26/24 09/25/24 History
(Noa Chewable Low Dose Aspirin) Prevention/Tx
Review of Systems
-
Unable to Obtain full review of systems at this time due to: Patient Intubation
Vitals / Labs / Diagnostic Testing
Vital Signs
Temp Pulse Resp BP Pulse Ox
97.8 F 60 15 113/69 99
09/26/24 19:00 09/26/24 19:00 09/26/24 19:00 09/26/24 19:00 09/26/24 19:00
Lab Data
09/26/24 19:11
09/26/24 15:44
Laboratory Results
09/26/24
15:44
PT 18.9 H
INR 1.53
APTT 33.7
pH 7.33 L
pCO2 42
pO2 122 H
HCO3 22.1
O2 Delivery Level
Diagnostic Testing:
Physical Exam
-
HEENT: Normocephalic, Anicteric and Other (ETT in place)
Cardiovascular: S1/S2 and Peripheral Edema (negative)
Respiratory: Wheeze (negative), Rales (negative), Rhonchi (negative), Non-Labored Respirations and Other (Mechanical breath sounds heard bilaterally)
GI: Soft, Non Distended, Non Tender and Normal Bowel Sounds
Neurology: Tremors (negative) and Other (Sedated)
Skin: Warm and Dry
General: Respiratory Distress (negative), Comfortable, Chills (negative) and Sweats (negative)
Assessment
-
Assessment: 74-year-old male former tobacco smoker with a past medical history of nonrheumatic aortic valve stenosis, CAD, hypertension, hyperlipidemia, IMCHAELA, ED, chronic productive cough, and osteoarthritis who presents for elective CABG + surgical
aortic valve replacement. Patient known to the cardiothoracic surgery service with last visit on 09/12/[address] Huerta. Transthoracic echo on 08/01/2024 showed a suspected bicuspid valve with peak/mean gradients of 82/66 mm, respectively with a
calculated HANS of 0.85 cm�. Left and right heart catheterization on 08/16/2024 showed a focal 60% ostial stenosis of D1 with otherwise nonobstructive CAD, with mildly elevated biventricular filling pressures and severe to critical aortic stenosis
with a mean gradient of 68 mmHg with an HANS of 0.85 cm�. Risks and benefits of a cardiothoracic intervention were discussed, and the patient agreed to a procedure. On 09/26/2024, he underwent a CABG x 1, with a surgical aortic valve replacement
with a 29 mm bioprosthesis and a left atrial appendage exclusion with a 45 mm device. There were no complications, the patient was transferred to CVICU for further care and Flooring Helper services consulted for additional management/recommendations.
Chronic conditions BEAN DUMPER: Hyperlipidemia, hypertension, nephrolithiasis, MICHAELA, osteoarthritis, ED, chronic productive cough, former tobacco smoker (quit 2010), aortic stenosis, CAD
Impression:
#Severe aortic valve stenosis with bicuspid valve morphology s/p surgical aortic valve replacement with 29 mm bioprosthesis � POD #0
#Single-vessel CAD with 60% ostial stenosis of D1 s/p CABG x 1 (aortic to RSVG to large diagonal) � POD #0
#Acute anemia due to above
#Acute thrombocytopenia due to above
#Hypocalcemia
#Hyperglycemia
#Hyperlipidemia
#Hypertension
#Osteoarthritis
#Moderate LVH
#Nephrolithiasis
Plan:
Ventilator settings reviewed
FiO2 will be weaned to maintain SpO2 >90-94%
Minute ventilation will be adjusted
Arterial blood gases will be monitored
Spontaneous breathing trial will be attempted with hopeful extubation after anesthesia/sedation wear off
prn nebulized bronchodilators - not currently bronchospastic
Pulmonary artery catheter parameters will be followed
Pressors/antihypertensive/inotropes/diuretics will be provided as needed
Maintain MAP>65
Replete electrolytes with K>4, Mg>2
Monitor chest tube output (mediastinal chest tubes x 2)
Monitor hemoglobin
Monitor platelet count and coags
Transfuse blood products as needed to maintain Hb>7g/dL, plt>50k (given post-operative status)
CT surgery managing chest tubes
Monitor blood sugar to maintain euglycemia with goal BG 110-140
Insulin drip per protocol
Aspiration precautions
VAP prevention protocol
DVT prophylaxis
Early nutrition
Early mobilization
Critical care statement: A total of 46 minutes of critical care time was provided for this patient today. This includes management of ventilator, spontaneous breathing trial, arterial blood gases, pressors, of unstable vital signs, evaluation of the
patient at bedside, reviewing the patient's pertinent medical records including radiographs, microbiology, laboratory evaluations, and discussion with primary team and critical care nursing.
[2024-09-26 15:30] LABS: ACT+ - POC 118 Seconds (82-134)
--- NOTE | 2024-09-26 15:30 | PTCARENOTE ---
Received pt from CVOR team. Intubated and sedated on the vent. SIMV 40 % rate 14 tv 500 psv 5 peep 10. SR 60 on monitor. RT IJ swan floated to 43 cm. Lt radial A line transducing. Lines leveled, recalibrated and flushed. Epicardial wire to
back up of VVI 30. Chest tubes x 2 to - 20 cm suction . No air leak or crepitus noted. Abdomen obese with hypoactive bowel sounds. Noel draining clear yellow urine. Pulses palpable. Surgical sites c,d,i. Drips infusing on arrival Levophed
and insulin,.
[2024-09-26 15:46] LABS: ACT-LR - POC 142 Seconds (116-155)
[2024-09-26] MEDS: DDAVP 57.5 MCG IV (15:46)
[2024-09-26] MEDS: NSS 500 IV (15:47)
[2024-09-26] MEDS: ANCEF 10 IV ×2 (15:47)
[2024-09-26 15:52] LABS: Glucose - Point of Care 138 mg/dl (70-99)
[2024-09-26 15:52] LABS: B.E. -3.7 mmol/L; HCO3 22.1 mmol/L (21-28); Ionized Calcium 1.02 mMOL/L (1.15-1.33); O2 Saturation % 99.5 % (94-98); PCO2 42 mmHg (35-48); PO2 122 mmHg (83-108); Sodium 136 mMOL/L (136-145); pH 7.33 (7.35-7.45)
[2024-09-26 15:53] LABS: Hemoglobin 11.4 g/dL (13.0-18.0); Platelet Count 139 10^3/uL (130-400)
[2024-09-26 15:54] LABS: ACT-LR - POC 153 Seconds (116-155)
[2024-09-26] MEDS: CALCIUM CHLORIDE 10% SYRINGE 500 MG IV ×3 (16:00→17:03)
--- NOTE | 2024-09-26 16:00 | PTCARENOTE ---
Chest tubes with large volume of drainage upon arrival to unit. ACT on arrival 142, 50 mg protamine administered, 2 units platelets transfused, repeat ACT 153, DDAVP ordered and administered. Order obtained for FFP awaiting product from the blood
bank. Family updated.
[2024-09-26 16:04] LABS: APTT 33.7 Sec (23.4-35.0); INR 1.53; PT 18.9 Sec (11.4-14.6)
[2024-09-26 16:07] LABS: Blood Urea Nitrogen 19 mg/dl (9-20); Estimated Creatinine Clearance 91 ml/min; Glucose 137 mg/dl (70-99); Magnesium 2.4 mg/dl (1.6-2.3)
[2024-09-26 16:08] LABS: B.E. - POC -1.7 mmol/L; Blood Urea Nitrogen - POC 19 mg/dl (3-120); Chloride - POC 106 mmol/L (96-111); Creatinine - POC 0.86 mg/dl (0.3-1.0); Glucose - POC 144 mg/dl (70-99); HCO3 - POC 24 mmol/L (21-28); Hematocrit - POC 29 % PCV (42-52); Hemodilution- POC No; Hemoglobin Calculated - POC 9.9; Ionized Calcium - POC 0.98 mmol/L (1.15-1.33); Lactate - POC 3.25 mmol/L (0.36-0.75); O2 Saturation %Calculated-POC 97.3 % (94-98); PCO2 - POC 45 mmHg (35-48); PO2 - POC 100 mmHg (83-108); Potassium - POC 3.7 mmol/L (3.5-5.1); Sodium - POC 144 mmol/L (136-145); Specimen Type - POC Arterial; pH - POC 7.34 (7.35-7.45)
[2024-09-26 16:10] LABS: Mixed Venous O2 Saturation 69.2 %
[2024-09-26] MEDS: PACERONE PO (16:11)
[2024-09-26] MEDS: TYLENOL PO ×2 (16:11→23:51)
[2024-09-26] MEDS: NEURONTIN PO ×2 (16:11→23:50)
[2024-09-26] MEDS: PROTAMINE 30 MG IV (16:12)
[2024-09-26] MEDS: PROTAMINE 20 MG IV (16:14)
[2024-09-26] MEDS: KCL 50 IV ×2 (16:15→17:03)
[2024-09-26 16:57] LABS: Glucose - Point of Care 176 mg/dl (70-99)
--- NOTE | 2024-09-26 17:08 | W.PN.UPDATE ---
Update Note
Progress Note Update
74 year old male electively admitted 09/26/24 for AVR/CABG due to bicuspid aortic valve with severe aortic stenosis and diagonal stenosis
IV fluids: 2100
U.O.:� 550
Blood:� none
Wires:� bipolar V-wire
Drips: Levophed, Insulin
Sedatives:� Precedex
�
NEURO: sedated on Precedex, pupils +2mm B/L
RESP: #8OT @26cm> 500/60%/14/5. Lungs clear B/L. 2 mediastinal (160cc on arrival) chest tubes to -20cm suction. Sanguineous drainage
CV: RRR +S1, S2, no S3, no�rub, no murmur. Dermabond to median sternotomy. RIJ w/[place] locked @ 48cm
ABD: round, soft, no BS
EXT: no edema, +2/4 DP pulses B/L, no femoral bruit, RLE SHAKA wrap intact; right radial A-line intact
: Noel with clear yellow urine
�
A/P: POD #0 s/p aortic valve replacement [#29 mm bioprosthesis], CABG x 1 [SVG to large diagonal], left atrial appendage exclusion [#45 mm device]
ROBBIE: report pending
- will need instruction regarding antibiotic prophylaxis for dental and invasive procedures
- insulin infusion x 24h
- wean PEEP and extubate when coagulopathy corrected
# Coagulopathy
- PEEP 10
- ACT 142/INR 1.53>2 Plts, DDAVP 30mcg, 2FFP ordered
- Received Protamine 60mg in the OR and Protamine 50mg in CVICU
- check fibrinogen
# CAD
- will require Plavix, high intensity statin, beta jaswinder POD #1 when extubated, off pressors
- will give ASA when coagulopathy corrected
# Anxiety
- resume Escitalopram 20mg BID when tolerating oral intake
# Obesity (BMI 33.3)
- encourage calorie controlled diet and increased activity
# acute surgical blood loss anemia-expected
- trend CBC
�
# Hypertension
- home regimen: Valsartan 80mg daily>resume as BP permits
[2024-09-26 17:30] LABS: Fibrinogen 184 MG/DL (199-459)
[2024-09-26 18:01] LABS: Glucose - Point of Care 134 mg/dl (70-99)
[2024-09-26 19:13] LABS: Glucose - Point of Care 120 mg/dl (70-99)
[2024-09-26 19:34] LABS: Hematocrit 28.1 % (39.0-52.0); Hemoglobin 9.8 g/dL (13.0-18.0); Platelet Count 110 10^3/uL (130-400)
--- NOTE | 2024-09-26 19:52 | PTCARENOTE ---
Received pt from [facility]. pt is s/p AVR, CABGx1, and MARK clip. pt is sedated and intubated. pt responds to voice and follows simple commands. heart sound audible, radial and DP pulses palpable, no edema noted, temp epicardial V-wires are set to VVI
01/05/. lung sounds course throughout, sp02 is 99% on vet settings SIMV fio2 40%, TV 500, peep 8, RR 14, x2 MS CT to -20 all suction, no air leaks , no tidaling, no crepitus. hypoactive BS x4 quadrants, abdomen soft, round, obese. pt voiding clear
yellow urine via white catheter. surgical sites maintained. right IJ cordis/swan @ 43cm, right radial Sandie, PIV all maintained, leveled, and zeroed. levophed and insulin gtt infusing. will continue to monitor.
[2024-09-26 20:12] LABS: B.E. -0.4 mmol/L; HCO3 24.8 mmol/L (21-28); Ionized Calcium 1.33 mMOL/L (1.15-1.33); O2 Saturation % 99.9 % (94-98); PCO2 42 mmHg (35-48); PO2 133 mmHg (83-108); Potassium 4.7 mMOL/L (3.5-5.1); pH 7.38 (7.35-7.45)
[2024-09-26 20:15] LABS: Mixed Venous O2 Saturation 63.3 %
[2024-09-26 20:18] LABS: Glucose - Point of Care 136 mg/dl (70-99)
[2024-09-26] MEDS: ANCEF 5 IV (20:19)
[2024-09-26] MEDS: OFIRMEV 100 IV (20:19)
[2024-09-26] MEDS: SENOKOT-S PO (20:20)
[2024-09-26 20:57] LABS: Glucose - Point of Care 127 mg/dl (70-99)
[2024-09-26 21:24] LABS: B.E. -1.2 mmol/L; HCO3 23.6 mmol/L (21-28); PCO2 39 mmHg (35-48); PO2 159 mmHg (83-108); pH 7.39 (7.35-7.45)
[2024-09-26] MEDS: DILAUDID 0.5 MG IV (21:50)
[2024-09-26 22:05] LABS: Glucose - Point of Care 137 mg/dl (70-99)
--- NOTE | 2024-09-26 22:13 | PTCARENOTE ---
sedation turned off at 1929. pt continues to follows commands and is more alert. at 2049 PEEP is changed from 8 to 5 and CPAP trial is started. pt tolerated trial well. ABG sent at 2119, CVPA reviewed. pt extubated at 2129 to 6 LNC. pt is AAOx4.
mouth care provided. ongoing pain management with medication and repositioning, see worklist and MAR. pt's called and updated. call ceballos within reach. on going monitoring.
[2024-09-26] MEDS: PACERONE 200 MG PO (23:49)
[2024-09-26] MEDS: ROXICODONE 5 MG PO (23:50)
[2024-09-26 23:58] LABS: Glucose - Point of Care 129 mg/dl (70-99)
[2024-09-27] VITALS (24 sets, daily range): BP systolic 91–149; BP diastolic 52–81; PULSE 86; O2SAT 95; BMI 33.1
--- NOTE | 2024-09-27 | PTCARENOTE ---
Pt assessment unchanged. NSR on monitor. VSS. on going pain management. call within reach. will continue to monitor.
[2024-09-27 01:03] LABS: Glucose - Point of Care 131 mg/dl (70-99)
[2024-09-27] MEDS: DILAUDID 0.25 MG IV (01:07)
[2024-09-27 02:06] LABS: Glucose - Point of Care 120 mg/dl (70-99)
[2024-09-27 03:04] LABS: Glucose - Point of Care 111 mg/dl (70-99)
[2024-09-27 03:17] LABS: Hematocrit 27.3 % (39.0-52.0); Hemoglobin 9.8 g/dL (13.0-18.0); Mean Corp Hgb Conc. 35.9 g/dL (33.0-37.0); Mean Corpuscular Volume 100.4 fL (80.0-94.0); Mean Platelet Volume 10.2 fL (7.4-10.4); Platelet Count 125 10^3/uL (130-400); Red Blood Cell Count 2.72 10^6/uL (4.70-6.10); Red Cell Dist. Width 12.6 % (11.5-14.5); White Blood Cell Count 16.2 10^3/uL (4.8-10.8)
[2024-09-27 03:24] LABS: Mixed Venous O2 Saturation 65.7 %
[2024-09-27 03:27] LABS: Fibrinogen 277 MG/DL (199-459)
[2024-09-27 03:28] LABS: Blood Urea Nitrogen 21 mg/dl (9-20); Calcium 9.2 mg/dl (8.4-10.2); Carbon Dioxide 26 mmol/L (22-30); Chloride 110 mmol/L (98-107); Estimated Creatinine Clearance 82 ml/min; Glucose 110 mg/dl (70-99); Magnesium 1.9 mg/dl (1.6-2.3); Potassium 4.2 mmol/L (3.5-5.1); Sodium 142 mmol/L (135-145); eGFR > 60.00
[2024-09-27] MEDS: DILAUDID 0.5 MG IV (03:32)
[2024-09-27] MEDS: ANCEF 5 IV ×2 (03:32→12:28)
--- NOTE | 2024-09-27 04:00 | PTCARENOTE ---
Pt assessment unchanged. NSR on monitor, VSS. labs drawn and sent. EKG obtained. pain management.
[2024-09-27 04:01] LABS: Glucose - Point of Care 114 mg/dl (70-99)
--- NOTE | 2024-09-27 04:02 | W.PN.CT ---
Today's Communication / Plan
-
-pod #1
-extubated uneventfully @ 9:30 pm. No issues overnight
-bleeding significantly decreased after FFPs/DDAVP/platelets/cryo
-CT outputs: 2 meds 225/715 in 12/24 hrs
-CI 2.74, CO 6.22. mVO2 65.7. Drips: insulin, Levo 2
-Hg stable - 9.8
-Platelets stable - 125K
-deline
-d/c Noel
-d/c insulin
-current meds (ASA, Plavix, Lopressor, Amio, Lipitor, Protonix, Lexapro)
-monitor Qt on Amio and Lexapro
-wean off O2 as tolerated
-encourage IS, OOB
Assessment / Plan
-
- Severe aortic valve stenosis with bicuspid valve morphology/1v-CAD - s/p Surgical aortic valve replacement [29 mm Goodrich Inspiris Resilia bioprosthesis]; CABG x 1 [aorta to RSVG to large diagonal]
on 09/26/[address] Huerta, pod #1
- Intraop ROBBIE: LVEF 65% pre and postop with no regional wma. He had moderate LVH. His aortic valve had a low mean gradient and only trace intra valvular AI postop.
- Severe aortic valve stenosis, bicuspid valve morphology, type I with heavily fused left right
- Single-vessel coronary artery disease
- Hyperlipidemia
- Hypertension
- Stage 1 obesity (BMI 33)
- Moderate LVH
- Osteoarthritis
- ED
- Nephrolithiasis
- Acute postop blood loss anemia
- Acute postop coagulopathy/ thrombocytopenia - s/p Protamine x2, 2 unit platelets, DDAVP, 2 FFPs, 1 cryo
- Acute postop atelectasis
- Acute postop hypovolemia with subsequent hypervolemia
Discussed patient care with: Nursing and Care Team
Subjective
-
Date of Service: September 26, 2024
Objective Data
-
Lab Results
09/26/24 19:11
09/26/24 15:44
PT 18.9 Sec (11.4-14.6) H 09/26/24 15:44
INR 1.53 09/26/24 15:44
APTT 33.7 Sec (23.4-35.0) 09/26/24 15:44
Vital Signs
Vital Signs
Temp Pulse Resp BP Pulse Ox
99.1 F 62 11 115/62 100
09/26/24 22:52 09/26/24 21:00 09/26/24 22:52 09/26/24 21:00 09/26/24 22:52
CT Intake/Output/Weight
09/26/24 09/26/24 09/27/24
06:59 18:59 06:59
Intake Total 1460.4 / 1697.7 237.3 / 1697.7
Output Total 715 / 1265 550 / 1265
Balance 745.4 / 432.7 -312.7 / 432.7
SaO2: 100
Physical Exam
-
General: Awake and AOx3
Cardiovascular: Regular rate & rhythm, No Murmurs and No Rub
Respiratory: Decreased Breath Sounds
Sternum: Stable
Incision: Clean, Dry and Intact
Extremities: No Edema (2+DPs b/l)
Abdomen: soft, nontender, + decreased bowel sounds, nondistended
Data Reviewed
-
Lab Results: Results Reviewed
Medications: Active Meds Reviewed
Chest X-Ray: Report Reviewed and Image Reviewed
ECG: Report Reviewed and Image Reviewed
[2024-09-27 05:00] LABS: Glucose - Point of Care 114 mg/dl (70-99)
[2024-09-27] MEDS: NOVOLIN R INSULIN INFUSION 100 IV (06:29)
[2024-09-27] MEDS: TYLENOL 1000 MG PO ×3 (06:29→22:13)
--- NOTE | 2024-09-27 06:46 | PTCARENOTE ---
carola removed. Cotter remained due to need for levo. pt 's BP remains labile. tolerated OOB to chair.
[2024-09-27 07:07] LABS: Glucose - Point of Care 120 mg/dl (70-99)
[2024-09-27] MEDS: LOPRESSOR PO (07:30)
[2024-09-27] MEDS: LIDOCAINE 4% PATCH 1 PATCH TOPICAL (07:50)
[2024-09-27] MEDS: PROTONIX 40 MG PO (07:51)
[2024-09-27] MEDS: NEURONTIN 100 MG PO ×3 (07:51→22:13)
[2024-09-27] MEDS: PACERONE 200 MG PO ×3 (07:51→22:13)
[2024-09-27] MEDS: SENOKOT-S 1 TABLET PO ×2 (07:51→19:58)
[2024-09-27] MEDS: LEXAPRO 10 MG PO (07:51)
[2024-09-27] MEDS: PLAVIX 75 MG PO (07:51)
[2024-09-27] MEDS: LIPITOR 80 MG PO (07:52)
[2024-09-27] MEDS: ROXICODONE 5 MG PO ×2 (07:52→19:09)
[2024-09-27] MEDS: FLEXERIL 5 MG PO (07:52)
[2024-09-27] MEDS: MAGNESIUM OXIDE 500 MG PO ×2 (07:52→19:58)
[2024-09-27] MEDS: LOW STRENGTH ASPIRIN 81 MG PO (07:53)
[2024-09-27] MEDS: BACTROBAN 2% OINTMENT 1 APPLIC NASAL ×2 (07:53→19:58)
--- NOTE | 2024-09-27 08:00 | PTCARENOTE ---
Assumed care of patient from client insights consultant RN. AAO x 3 . SR on monitor. Epicardial wire to back up of VVI 30. No pacing noted at present. Rt IJ cordis with KVO. Rt radial A line transducing. Lines leveled, recalibrated and flushed. Chest tubes
x 2 to - 20 cm suction. No air leak or crepitus noted. Surgical incisions well approximated with glue. Pulses palpable. Plan for day discussed.
--- NOTE | 2024-09-27 08:02 | W.PN.INTV ---
Today's Communication / Plan
Recommendations
Up OOB as tolerated
Pain control
Wean down insulin drip as per protocol with goal BG 110�140
Maintain SpO2 >90-94%
Cardiac rehab consult
Removal of mediastinal chest tubes per cardiothoracic surgery team
Geothermal Operating Engineer services will continue to follow along while the patient remains in the CVICU. Once weaned off insulin drip and downgraded to CVICU�telemetry status, then we will sign off at that time.
Assessment
-
Assessment: 74-year-old male former tobacco smoker with a past medical history of nonrheumatic aortic valve stenosis, CAD, hypertension, hyperlipidemia, MICHAELA, ED, chronic productive cough, and osteoarthritis who presents for elective CABG + surgical
aortic valve replacement. Patient known to the cardiothoracic surgery service with last visit on 09/12/[address] Huerta. Transthoracic echo on 08/01/2024 showed a suspected bicuspid valve with peak/mean gradients of 82/66 mm, respectively with a
calculated HANS of 0.85 cm�. Left and right heart catheterization on 08/16/2024 showed a focal 60% ostial stenosis of D1 with otherwise nonobstructive CAD, with mildly elevated biventricular filling pressures and severe to critical aortic stenosis
with a mean gradient of 68 mmHg with an HANS of 0.85 cm�. Risks and benefits of a cardiothoracic intervention were discussed, and the patient agreed to a procedure. On 09/26/2024, he underwent a CABG x 1, with a surgical aortic valve replacement
with a 29 mm bioprosthesis and a left atrial appendage exclusion with a 45 mm device. There were no complications, the patient was transferred to CVICU for further care and Geothermal Operating Engineer services consulted for additional management/recommendations.
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
Impression:
#Severe aortic valve stenosis with bicuspid valve morphology s/p surgical aortic valve replacement with 29 mm bioprosthesis � POD #1
#Single-vessel CAD with 60% ostial stenosis of D1 s/p CABG x 1 (aortic to RSVG to large diagonal) � POD #1
#Acute anemia due to above
#Acute thrombocytopenia due to above
#Hypocalcemia - resolved
#Hyperglycemia - improved
#Hyperlipidemia
#Hypertension
#Osteoarthritis
#Moderate LVH
#Nephrolithiasis
Plan:
Patient successfully extubated on the evening of 09/26/2024, and currently saturating 95% on room air and breathing comfortably
Maintain SpO2 >90-94%
prn nebulized bronchodilators - not currently bronchospastic
Encourage incentive spirometer use q1hr while awake
Pulmonary artery catheter parameters will be followed
Pressors/antihypertensive/inotropes/diuretics will be provided as needed
Maintain MAP>65
Replete electrolytes with K>4, Mg>2
Monitor chest tube output (mediastinal chest tubes x 2)
Monitor hemoglobin
Monitor platelet count and coags
Transfuse blood products as needed to maintain Hb>7g/dL, plt>50k (given post-operative status)
CT surgery managing chest tubes
Monitor blood sugar to maintain euglycemia with goal BG 110-140
Insulin drip per protocol
Aspiration precautions
DVT prophylaxis
Early nutrition
Early mobilization
Geothermal Operating Engineer services will continue to follow along while the patient remains in the CVICU. Once weaned off insulin drip and downgraded to CVICU�telemetry status, then we will sign off at that time.
Critical care statement: A total of 37 minutes of critical care time was provided for this patient today. This includes management of ventilator, spontaneous breathing trial, arterial blood gases, pressors, of unstable vital signs, evaluation of the
patient at bedside, reviewing the patient's pertinent medical records including radiographs, microbiology, laboratory evaluations, and discussion with primary team and critical care nursing.
Subjective Dataa
Subjective Data
Date of Service:
Date of Service: September 27, 2024
Chief Complaint: Geothermal Operating Engineer Follow Up
Subjective:
Patient seen and evaluated today at bedside. Breathing comfortably on room air, saturating 95%. Heart rate 75, BP 107/59. Mediastinal chest tubes x [address]. On insulin drip at 4 units/hr. Patient's , Jelena, at bedside and all questions
were answered.
Review of Systems
General: Other (Negative unless mentioned above)
Objective Data
Data Reviewed
Vital Signs / I&O / Oxygen:
Vital Signs
Temp Pulse Resp BP Pulse Ox
98.7 F 88 18 145/68 95
09/27/24 15:55 09/27/24 18:55 09/27/24 15:55 09/27/24 15:44 09/27/24 15:55
Intake and Output
09/26/24 09/27/24 09/28/24
06:59 06:59 06:59
Intake Total 1944.5 / 1959.9 994.5 / 994.5
Output Total 1920 / 1950 1854 / 1854
Balance 24.5 / 9.9 -860.5 / -860.5
SaO2 [CPAP] 100
SaO2 [SIMV] 99
SaO2 95
Nasal Cannula flow liters per 2
minute
Physical Exam
General: Respiratory Distress (negative), Comfortable, Chills (negative) and Sweats (negative)
HEENT: Normocephalic and Anicteric
Cardiovascular: S1-S2 and Peripheral Edema (negative)
Respiratory: Wheeze (negative), Crackles (negative), Rhonchi (negative), Non-Labored Respirations and Chest Tube (Mediastinal chest tubes x 2)
GI: Soft, Distended (Abdominal obesity), Non Tender and Normal Bowel Sounds
Neurology: AO x 3 and Tremors (negative)
Skin: Warm, Dry, Cyanosis (negative) and Jaundice (negative)
Labs/Micro/Reports
Lab Data
09/27/24 03:03
09/27/24 03:03
Laboratory Results
09/26/24 09/26/24
20:03 21:19
pH 7.38 7.39
pCO2 42 39
pO2 133 H 159 H
HCO3 24.8 23.6
O2 Delivery Level
--- NOTE | 2024-09-27 09:15 | W.PN.ANS.POP ---
Anesthesia Post Operative
- Anesthesia Post Op Note
Vital Signs Stable-See Nursing Note: Yes
Airway Patent: Yes
Adequate Pain Control: Yes
Change in Mental Status: No
Current Postoperative Nausea & Vomiting: No
Anesthesia Complications: No
General Anesthetic Recall: No
Unplanned Admission: No
Post Op Hydration Adequate: Yes
[2024-09-27 09:22] LABS: Glucose - Point of Care 149 mg/dl (70-99)
[2024-09-27 10:22] LABS: Glucose - Point of Care 110 mg/dl (70-99)
--- NOTE | 2024-09-27 10:42 | W.PN.CD ---
Today's Communication / Plan
-
OOB
BP meds able
cont post-op care
Impression / Plan
-
74 y/o male with HTN, HLD, preDM, CAD, and severe is now s/p AVR/CABG.
Severe (bicuspid) and CAD s/p CABG x 1 (aorta to RSVG to large diagonal), AVR (29 mm bioprosthesis), and MARK exclusion 09/26/24, Dr. Huerta
-now extubated
- progressing well
-ASA, statin, BB
HTN:
-on ARB as OP
- BPs OK for now likely restart possibly tomorrow
-monitor post-op
HLD:
-statin
Subjective: FEels well no new complaitns
Physical Exam
Vital Signs/Labs
Vital Signs
Temp Pulse Resp BP Pulse Ox
98.3 F 84 16 109/57 94
09/27/24 07:38 09/27/24 10:15 09/27/24 07:38 09/27/24 10:00 09/27/24 09:25
09/26/24 09/27/24 09/28/24
06:59 06:59 06:59
Actual Weight 236 lb 15.951 oz
09/27/24 03:03
09/27/24 03:03
PT 18.9 Sec (11.4-14.6) H 09/26/24 15:44
INR 1.53 09/26/24 15:44
APTT 33.7 Sec (23.4-35.0) 09/26/24 15:44
Magnesium 1.9 mg/dl (1.6-2.3) 09/27/24 03:03
Physical Exam
Constitutional: No acute distress and Comfortable
EENT: Anicteric
Cardiovascular: Rhythm & rate is regular and Rub present
Respiratory: Respiratory effort normal and Lungs clear to auscul.
GI: Soft
Neuro/Psych: AO x 3
Data Reviewed
-
Date of Service: September 27, 2024
EKG: Tracing Personally Visualized and interpreted (sr)
Echo: Report Reviewed by me
Labs: Labs Reviewed by me
Critical Care Time (in minutes): 31
[2024-09-27] MEDS: LASIX 40 MG IV (10:48)
[2024-09-27] MEDS: FLEXBUMIN 50 IV (10:48)
[2024-09-27 11:46] LABS: Glucose - Point of Care 107 mg/dl (70-99)
--- NOTE | 2024-09-27 12:52 | CM ---
CM following for DC planning needs.
Met w/ patient and spouse at bedside. Pt. POD#1 from AVR; feels well.
DC plan is for home w/ CT Transitional Care RN once stable.
Will follow.
[2024-09-27 13:01] LABS: Glucose - Point of Care 120 mg/dl (70-99)
[2024-09-27] MEDS: LOPRESSOR 12.5 MG PO ×2 (13:01→19:57)
[2024-09-27] MEDS: NSS IV (13:37)
--- NOTE | 2024-09-27 13:38 | PTCARENOTE ---
Tolerating sitting up in chair w/o issue. Hr 80's pt states he feels it racing, discussed with CT COMMUNICATIONS PROJECT LEAD, Metoprolol resumed. VSS. Pain well managed at present. Assessment unchanged from prior.
[2024-09-27] MEDS: FERRLECIT 110 MG IV (14:07)
[2024-09-27 14:19] LABS: Glucose - Point of Care 123 mg/dl (70-99)
[2024-09-27] MEDS: ROXICODONE 2.5 MG PO (14:37)
[2024-09-27 15:50] LABS: Glucose - Point of Care 94 mg/dl (70-99)
--- NOTE | 2024-09-27 15:56 | PTCARENOTE ---
Pain well managed this afternoon. Voiding without difficulty. Passing flatus. Appetite fair. VSS , assessment other tate unchanged from prior
--- NOTE | 2024-09-27 20:00 | PTCARENOTE ---
Assumed care of patient at 1900. Patient found resting in bed at time of assessment. Patient is AOx4, follows commands appropriately, moves all extremities. Lung sounds have fine crackles in the bases, patient has a productive occasional cough, saO2
92% on RA, patient has CTx2: 2xMeds draining red sanguineous to one atrium. Heart sounds are audible, patient is SR on the monitor, v wire present insulated, no observable edema with palpable pulses. Patient has active BS and is voiding in urinal.
There is a sternal incision approx with surg adhesive LUKAS, RLE inc approx with surg adhesive HEAD UP OPERATOR, and ABD dressing over CT wounds that CDI. Patient has R IJ cordis receiving KVO and R wrist 18G available for intermittent infusion. VSS. Call ceballos
within reach.
[2024-09-27] MEDS: LASIX 20 MG IV (20:15)
[2024-09-27] MEDS: KCL 20 MEQ PO (20:15)
[2024-09-27 22:19] LABS: Glucose - Point of Care 170 mg/dl (70-99)
[2024-09-28] VITALS (12 sets, daily range): BP systolic 111–148; BP diastolic 48–73; PULSE 96; O2SAT 48–98; BMI 32.6
--- NOTE | 2024-09-28 | PTCARENOTE ---
Patient reassessed. VSS. Placed on 2L via NC per CT PA for desats with exertion overnight. 20 IV lasix administered along with 20 mEq K for probable volume overload. Patient has no complaints at this time. Call ceballos within reach.
[2024-09-28] MEDS: ROXICODONE 2.5 MG PO (03:08)
[2024-09-28 03:28] LABS: Hematocrit 24.9 % (39.0-52.0); Hemoglobin 8.5 g/dL (13.0-18.0); Mean Corp Hgb Conc. 34.1 g/dL (33.0-37.0); Mean Corpuscular Hgb 35.1 pg (27.0-31.0); Mean Corpuscular Volume 102.9 fL (80.0-94.0); Mean Platelet Volume 10.4 fL (7.4-10.4); Platelet Count 103 10^3/uL (130-400); Red Blood Cell Count 2.42 10^6/uL (4.70-6.10); Red Cell Dist. Width 12.8 % (11.5-14.5)
[2024-09-28 03:48] LABS: Blood Urea Nitrogen 26 mg/dl (9-20); Calcium 8.8 mg/dl (8.4-10.2); Carbon Dioxide 32 mmol/L (22-30); Chloride 101 mmol/L (98-107); Estimated Creatinine Clearance 82 ml/min; Glucose 140 mg/dl (70-99); Magnesium 1.9 mg/dl (1.6-2.3); Potassium 4.4 mmol/L (3.5-5.1); Sodium 137 mmol/L (135-145); eGFR > 60.00
--- NOTE | 2024-09-28 04:23 | W.PN.CT ---
Addendum entered and electronically signed by Cedric Levy MD 09/28/24 09:19:
I saw and examined the patient.
The PA's note was reviewed and I agree with the note.
Comment:
POD#2 s/p AVR, CABG x 1, ELAA
Doing well.
Diruesis today
OOB/IS/ambulate
D/C CTs tomorrow
Original Note:
Today's Communication / Plan
-
Plan:
-No major issues overnight. Hemodynamically and neurologically intact
-Off all drips
-Monitor chest tube output for possible D/C: 2med 185/340
-Monitor h/h 8.5/24.9, likely hemodilutional
-Monitor thrombocytopenia, 125->103
-Cont. diuresis, fluid restriction
-Cont. current meds (ASA, Plavix, Lopressor, Amio, Lipitor, Protonix, Lexapro)
-Monitor Qt on Amio and Lexapro
-Maintain cordis another day
-Wean off O2 as tolerated
-Encourage IS, OOB
-Ambulate
Assessment / Plan
-
- Severe aortic valve stenosis with bicuspid valve morphology/1v-CAD - s/p Surgical aortic valve replacement [29 mm Goodrich Inspiris Resilia bioprosthesis]; CABG x 1 [aorta to RSVG to large diagonal]
on 09/26/[address] Huerta, pod #2
- Intraop ROBBIE: LVEF 65% pre and postop with no regional wma. He had moderate LVH. His aortic valve had a low mean gradient and only trace intra valvular AI postop.
- Severe aortic valve stenosis, bicuspid valve morphology, type I with heavily fused left right
- Single-vessel coronary artery disease
- Hyperlipidemia
- Hypertension
- Stage 1 obesity (BMI 33)
- Moderate LVH
- Osteoarthritis
- ED
- Nephrolithiasis
- Acute postop blood loss anemia
- Acute postop coagulopathy/ thrombocytopenia - s/p Protamine x2, 2 unit platelets, DDAVP, 2 FFPs, 1 cryo
- Acute postop atelectasis
- Acute postop hypovolemia with subsequent hypervolemia
Discussed patient care with: Cardiology, Nursing, Respiratory Therapy, Pharmacy and Care Team
Subjective
-
Date of Service: September 28, 2024
Pt c/o incisional pain, otherwise feels well
Objective Data
-
Lab Results
09/28/24 03:16
09/28/24 03:16
PT 18.9 Sec (11.4-14.6) H 09/26/24 15:44
INR 1.53 09/26/24 15:44
APTT 33.7 Sec (23.4-35.0) 09/26/24 15:44
Vital Signs
Vital Signs
Temp Pulse Resp BP Pulse Ox
99 F 80 18 118/64 98
09/28/24 03:27 09/28/24 03:25 09/28/24 03:27 09/28/24 03:06 09/28/24 03:27
CT Intake/Output/Weight
09/27/24 09/27/24 09/28/24
06:59 18:59 06:59
Intake Total 484.1 / 1959.9 994.5 / 1114.5 120 / 1114.5
Output Total 1205 / 1950 1855 / 2845 990 / 2845
Balance -720.9 / 9.9 -860.5 / -1730.5 -870 / -1730.5
SaO2: 98 (2L)
Physical Exam
-
General: Awake, Oriented and AOx3
Cardiovascular: Regular rate & rhythm, No Murmurs, No Rub and No Gallop
Respiratory: Decreased Breath Sounds (at bases, otherwise clear)
Sternum: Stable
Incision: Clean, Dry, Intact and Dressing Intact
Extremities: Other (+trace edema)
Data Reviewed
-
Lab Results: Results Reviewed
Medications: Active Meds Reviewed
Chest X-Ray: Report Reviewed and Image Reviewed
ECG: Report Reviewed and Image Reviewed
[2024-09-28] MEDS: TYLENOL 1000 MG PO ×3 (05:47→22:19)
--- NOTE | 2024-09-28 06:02 | PTCARENOTE ---
Patient reassessed. VSS. AM labs obtained. AM hygiene care provided. Patient given 2.5 Chante for mild pain. While cleaning patient this RN noted dry blood on bed sheets and inferior aspect of RLE incision. No active bleeding noted. CT PA notified. No
new orders at this time. 4x4 gauze dressing placed over inferior aspect of incision in case further oozing occurs. Patient oob to chair without incident. Call ceballos within reach.
--- NOTE | 2024-09-28 07:45 | W.PN.INTV ---
Today's Communication / Plan
Recommendations
Up OOB as tolerated
Pain control
Goal BG 110�140
Maintain SpO2 >90-94%
Cardiac rehab consult
Removal of mediastinal chest tubes per cardiothoracic surgery team
Patient is being downgraded to CVICU�telemetry status. No additional recommendations at this time. Compo Caster/Pulmonary service will now sign off. Please reconsult if there are any additional questions/concerns, or if patient's respiratory
status deteriorates.
Assessment
-
Assessment: 74-year-old male former tobacco smoker with a past medical history of nonrheumatic aortic valve stenosis, CAD, hypertension, hyperlipidemia, MICHAELA, ED, chronic productive cough, and osteoarthritis who presents for elective CABG + surgical
aortic valve replacement. Patient known to the cardiothoracic surgery service with last visit on 09/12/[address] Huerta. Transthoracic echo on 08/01/2024 showed a suspected bicuspid valve with peak/mean gradients of 82/66 mm, respectively with a
calculated HANS of 0.85 cm�. Left and right heart catheterization on 08/16/2024 showed a focal 60% ostial stenosis of D1 with otherwise nonobstructive CAD, with mildly elevated biventricular filling pressures and severe to critical aortic stenosis
with a mean gradient of 68 mmHg with an HANS of 0.85 cm�. Risks and benefits of a cardiothoracic intervention were discussed, and the patient agreed to a procedure. On 09/26/2024, he underwent a CABG x 1, with a surgical aortic valve replacement
with a 29 mm bioprosthesis and a left atrial appendage exclusion with a 45 mm device. There were no complications, the patient was transferred to CVICU for further care and Compo Caster services consulted for additional management/recommendations.
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
Impression:
#Severe aortic valve stenosis with bicuspid valve morphology s/p surgical aortic valve replacement with 29 mm bioprosthesis � POD #2
#Single-vessel CAD with 60% ostial stenosis of D1 s/p CABG x 1 (aortic to RSVG to large diagonal) � POD #2
#Acute anemia due to above
#Acute thrombocytopenia due to above
#Hypocalcemia - resolved
#Hyperglycemia
#Hyperlipidemia
#Hypertension
#Osteoarthritis
#Moderate LVH
#Nephrolithiasis
Plan:
Patient successfully extubated on the evening of 09/26/2024, and currently saturating 94-95% on room air and breathing comfortably
Maintain SpO2 >90-94%
prn nebulized bronchodilators - not currently bronchospastic
Encourage incentive spirometer use q1hr while awake
Removal of R�IJ cordis per CT surgery team
Maintain MAP>65
Replete electrolytes with K>4, Mg>2
Monitor chest tube output (mediastinal chest tubes x 2)
Monitor hemoglobin
Monitor platelet count and coags
Transfuse blood products as needed to maintain Hb>7g/dL, plt>50k (given post-operative status)
CT surgery managing chest tubes
Monitor blood sugar to maintain euglycemia with goal BG 110-140
Insulin drip now discontinued - recommend ISS before meals to maintain BG at goal as above
Aspiration precautions
DVT prophylaxis
Early nutrition
Early mobilization
Patient is being downgraded to CVICU�telemetry status. No additional recommendations at this time. Compo Caster/Pulmonary service will now sign off. Thank you for allowing us to be involved in the care of this patient. Please reconsult if there
are any additional questions/concerns, or if patient's respiratory status deteriorates.
Total time spent today was 57 minutes for this encounter. Time includes reviewing laboratory test/imaging results, reviewing pertinent medical records, obtaining and reviewing medical history, performing an appropriate exam, ordering medications,
tests and procedures. Time also includes documentation of this encounter, coordinating patient care and communicating with other healthcare professionals. Total time does not include separately billed tests performed on this date of service.
Subjective Dataa
Subjective Data
Date of Service:
Date of Service: September 28, 2024
Chief Complaint: Compo Caster Follow Up
Subjective:
Patient was seen and evaluated today at bedside. Heart rate 88, BP 119/65 and saturating 94% on room air. Mediastinal chest tubes x [address]. He feels well, mild chest discomfort but denies SOB, DELANEY, nausea, fevers or chills.
Review of Systems
General: Other (Negative unless mentioned above)
Objective Data
Data Reviewed
Vital Signs / I&O / Oxygen:
Vital Signs
Temp Pulse Resp BP Pulse Ox
99 F 87 20 111/58 95
09/28/24 07:38 09/28/24 07:35 09/28/24 07:38 09/28/24 07:34 09/28/24 07:38
Intake and Output
09/27/24 09/28/24 09/29/24
06:59 06:59 06:59
Intake Total 1944.5 / 1959.9 1114.5 / 1114.5 490 / 490
Output Total 1919 / 1949 3190 / 3190
Balance 24.5 / 9.9 -2075.5 / -5.5 465 / 465
SaO2 [CPAP] 100
SaO2 [SIMV] 99
SaO2 95
Nasal Cannula flow liters per 2
minute
Physical Exam
General: Respiratory Distress (negative), Comfortable, Chills (negative) and Sweats (negative)
HEENT: Normocephalic and Anicteric
Cardiovascular: S1-S2 and Peripheral Edema (negative)
Respiratory: Wheeze (negative), Crackles (negative), Rhonchi (negative), Non-Labored Respirations and Chest Tube (Mediastinal chest tubes x 2)
GI: Soft, Distended (Abdominal obesity), Non Tender and Normal Bowel Sounds
Neurology: AO x 3 and Tremors (negative)
Skin: Warm, Dry, Cyanosis (negative) and Jaundice (negative)
Labs/Micro/Reports
Lab Data
09/28/24 03:16
09/28/24 03:16
[2024-09-28] MEDS: LASIX 40 MG IV (07:51)
[2024-09-28] MEDS: LIPITOR 80 MG PO (07:51)
[2024-09-28] MEDS: MAGNESIUM OXIDE 500 MG PO ×2 (07:52→20:08)
[2024-09-28] MEDS: PACERONE 200 MG PO ×3 (07:52→22:18)
[2024-09-28] MEDS: LOW STRENGTH ASPIRIN 81 MG PO (07:52)
[2024-09-28] MEDS: BACTROBAN 2% OINTMENT 1 APPLIC NASAL ×2 (07:52→20:11)
[2024-09-28] MEDS: SENOKOT-S 1 TABLET PO ×2 (07:52→20:09)
[2024-09-28] MEDS: KCL 20 MEQ PO ×2 (07:52→20:09)
[2024-09-28] MEDS: PROTONIX 40 MG PO (07:52)
[2024-09-28] MEDS: LEXAPRO 10 MG PO (07:52)
[2024-09-28] MEDS: PLAVIX 75 MG PO (07:52)
[2024-09-28] MEDS: NEURONTIN 100 MG PO ×3 (07:52→22:18)
[2024-09-28] MEDS: LIDOCAINE 4% PATCH TOPICAL (07:53)
[2024-09-28 07:59] LABS: Glucose - Point of Care 175 mg/dl (70-99)
--- NOTE | 2024-09-28 08:00 | PTCARENOTE ---
Received pt from rn night RN; pt AAOx3 and resting comfortably in chair; NSR on monitor and VSS; Epicardial V wire insulated; RIJ Cordis and PIV x1 patent; Lungs diminished with fine crackles in bases; productive cough with clear sputum; IS to
1500; hypoactive bowel sounds; pt voiding yellow urine; palpable pulses throughout; trace hand edema noted; all surgical sites C/D/I; see nursing documentation for details.
[2024-09-28] MEDS: LOPRESSOR 12.5 MG PO ×2 (08:51→20:10)
[2024-09-28] MEDS: FLEXERIL 5 MG PO (10:25)
--- NOTE | 2024-09-28 12:02 | PTCARENOTE ---
Assessment unchanged; NSR on monitor and VSS; pain management; pt resting comfortably in chair.
[2024-09-28 13:32] LABS: Glucose - Point of Care 139 mg/dl (70-99)
[2024-09-28] MEDS: MUCINEX 1200 MG PO ×2 (13:56→20:08)
[2024-09-28] MEDS: FERRLECIT 110 MG IV (13:56)
[2024-09-28] MEDS: NSS 500 IV (15:17)
[2024-09-28] MEDS: ROXICODONE 5 MG PO (15:17)
[2024-09-28] MEDS: DIAMOX 250 MG PO (16:20)
--- NOTE | 2024-09-28 16:20 | PTCARENOTE ---
NSR on monitor and VSS; pt ambulating hallways with RN; assessment unchanged and pt resting comfortably in chair with family at bedside.
--- NOTE | 2024-09-28 21:16 | PTCARENOTE ---
Assumed care of patient at 1900. Patient found resting in bed at time of assessment. Patient is Aox4, follows commands appropriately, moves all extremities. Lung sounds are diminished in the bases, saO2 is 98% on RA, patient has CTx2: 2xmeds
draining red sanguineous to one atrium. Atrium changed at change of shift d/t being knocked over. Heart sounds are audible, patient is SR with BBB on the monitor, patient has normal palpable pulses, there is trace edema present in the hands, patient
has v wires which have been insulated. Patient has active BS in all four quadrants and is voiding in urinal. There is a sternal incision approx with surg adhesive LUKAS and RLE incision approx with surg adhesive and 4x4 gauze dressing on inferior
aspect that is CDI. Patient has R IJ cordis receiving KVO and R wrist 18G for intermittent infusion. Assisted patient with ambulation in hallway. Back in bed without incident. Call ceballos within reach.
[2024-09-29] VITALS (7 sets, daily range): BP systolic 100–157; BP diastolic 51–66; BMI 31.9
--- NOTE | 2024-09-29 | PTCARENOTE ---
Patient reassessed. VSS. No c/o pain. Call ceballos within reach. Remains SR on the monitor.
[2024-09-29 03:42] LABS: Hemoglobin 9.7 g/dL (13.0-18.0); Mean Corp Hgb Conc. 34.6 g/dL (33.0-37.0); Mean Corpuscular Hgb 35.7 pg (27.0-31.0); Mean Corpuscular Volume 102.9 fL (80.0-94.0); Mean Platelet Volume 10.3 fL (7.4-10.4); Platelet Count 97 10^3/uL (130-400); Red Blood Cell Count 2.72 10^6/uL (4.70-6.10); Red Cell Dist. Width 12.9 % (11.5-14.5); White Blood Cell Count 9.3 10^3/uL (4.8-10.8)
--- NOTE | 2024-09-29 03:51 | PTCARENOTE ---
Patient reassessed. VSS. AM labs obtained. Hygiene care provided. Remains SR on the monitor. Call ceballos within reach.
[2024-09-29 04:00] LABS: Blood Urea Nitrogen 26 mg/dl (9-20); Calcium 8.8 mg/dl (8.4-10.2); Carbon Dioxide 27 mmol/L (22-30); Chloride 104 mmol/L (98-107); Estimated Creatinine Clearance 74 ml/min; Glucose 126 mg/dl (70-99); Magnesium 2.1 mg/dl (1.6-2.3); Potassium 3.8 mmol/L (3.5-5.1); Sodium 138 mmol/L (135-145); eGFR > 60.00
--- NOTE | 2024-09-29 04:24 | W.PN.CT ---
Today's Communication / Plan
-
Plan:
-No major issues overnight. Hemodynamically and neurologically intact
-Off all drips
-D/C cordis
-D/C chest tubes: 2meds 45/145
-H/H improved with diuresis 8.5/24.9-> 9.7/28
-Thrombocytopenia improved with diuresis, 125->103-> 126
-Will hold off on diuresis as pt appears euvolemic
-Cont. current meds (ASA, Plavix, Lopressor, Amio, Lipitor, Protonix, Lexapro)
-Monitor Qt on Amio and Lexapro
-Wean off O2 as tolerated
-Encourage IS, OOB
-Ambulate
-Home tomorrow
Assessment / Plan
-
- Severe aortic valve stenosis with bicuspid valve morphology/1v-CAD - s/p Surgical aortic valve replacement [29 mm Goodrich Inspiris Resilia bioprosthesis]; CABG x 1 [aorta to RSVG to large diagonal]
on 09/26/[address] Huerta, pod #3
- Intraop ROBBIE: LVEF 65% pre and postop with no regional wma. He had moderate LVH. His aortic valve had a low mean gradient and only trace intra valvular AI postop.
- Severe aortic valve stenosis, bicuspid valve morphology, type I with heavily fused left right
- Single-vessel coronary artery disease
- Hyperlipidemia
- Hypertension
- Stage 1 obesity (BMI 33)
- Moderate LVH
- Osteoarthritis
- ED
- Nephrolithiasis
- Acute postop blood loss anemia
- Acute postop coagulopathy/ thrombocytopenia - s/p Protamine x2, 2 unit platelets, DDAVP, 2 FFPs, 1 cryo
- Acute postop atelectasis
- Acute postop hypovolemia with subsequent hypervolemia
Discussed patient care with: Cardiology, Nursing, Respiratory Therapy, Pharmacy and Care Team
Subjective
-
Date of Service: September 29, 2024
Pt c/o productive cough, otherwise feels well
Objective Data
-
Lab Results
09/29/24 03:22
09/29/24 03:22
PT 18.9 Sec (11.4-14.6) H 09/26/24 15:44
INR 1.53 09/26/24 15:44
APTT 33.7 Sec (23.4-35.0) 09/26/24 15:44
Vital Signs
Vital Signs
Temp Pulse Resp BP Pulse Ox
98.4 F 76 20 101/57 96
09/29/24 03:00 09/29/24 03:45 09/29/24 03:00 09/29/24 03:20 09/29/24 03:45
CT Intake/Output/Weight
09/28/24 09/28/24 09/29/24
06:59 18:59 06:59
Intake Total 120 / 1114.5 670 / 790 120 / 790
Output Total 1335 / 3190 1525 / 2565 1040 / 2565
Balance -1215 / -2075.5 -855 / -1775 -920 / -1775
SaO2: 96 (RA)
Physical Exam
-
General: Awake, Oriented and AOx3
Cardiovascular: Regular rate & rhythm, No Murmurs, No Rub and No Gallop
Respiratory: Decreased Breath Sounds (at bases, otherwise clear)
Sternum: Stable
Incision: Clean, Dry, Intact and Dressing Intact
Extremities: No Edema and Other
Data Reviewed
-
Lab Results: Results Reviewed
Medications: Active Meds Reviewed
Chest X-Ray: Report Reviewed and Image Reviewed
ECG: Report Reviewed and Image Reviewed
[2024-09-29] MEDS: TYLENOL 1000 MG PO ×3 (05:47→20:52)
[2024-09-29] MEDS: KCL 40 MEQ PO (05:48)
[2024-09-29] MEDS: CALCIUM GLUCONATE 100 IV (05:50)
[2024-09-29] MEDS: LOPRESSOR 12.5 MG PO ×2 (07:58→20:52)
[2024-09-29] MEDS: PACERONE 200 MG PO ×3 (07:58→20:53)
[2024-09-29] MEDS: LIPITOR 80 MG PO (07:58)
[2024-09-29] MEDS: PROTONIX 40 MG PO (07:59)
[2024-09-29] MEDS: LEXAPRO 10 MG PO (07:59)
[2024-09-29] MEDS: KCL 20 MEQ PO (07:59)
[2024-09-29] MEDS: PLAVIX 75 MG PO (07:59)
[2024-09-29] MEDS: NEURONTIN 100 MG PO ×3 (07:59→20:52)
[2024-09-29] MEDS: MAGNESIUM OXIDE 500 MG PO ×2 (07:59→20:52)
[2024-09-29] MEDS: MUCINEX 1200 MG PO ×2 (07:59→20:50)
[2024-09-29] MEDS: LOW STRENGTH ASPIRIN 81 MG PO (07:59)
[2024-09-29] MEDS: BACTROBAN 2% OINTMENT 1 APPLIC NASAL ×2 (08:00→20:53)
[2024-09-29] MEDS: LIDOCAINE 4% PATCH TOPICAL (08:00)
[2024-09-29] MEDS: SENOKOT-S PO (08:00)
--- NOTE | 2024-09-29 08:08 | PTCARENOTE ---
Received pt from night patrol inspector RN; pt AAOx3 and resting comfortably in chair; NSR on monitor and VSS; Epicardial V wires insulated; RIJ Cordis and PIV x1 patent; Lungs diminished; CT x2 to -20 wall suction no air leak and no crepitus noted; IS to
1500; positive bowel sounds; pt voiding yellow urine; palpable pulses throughout; trace edema noted; all surgical sites C/D/I; see nursing documentation for further details.
--- NOTE | 2024-09-29 08:31 | W.PN.UPDATE ---
Addendum entered and electronically signed by Cedric Levy MD 09/29/24 09:28:
I saw and examined the patient.
The PA's note was reviewed and I agree with the note.
Comment:
Doing well.
D/C CTs today.
Cut pacing wires.
Continue diuresis
D/C planning for potentially home tomorrow.
Addendum entered and electronically signed by SUDHAKAR Fonseca 09/29/24 09:02:
Correction: No pacing since surgery. Epicardial bipolar ventricular wire cut to skin level
Original Note:
Update Note
Progress Note Update
No pacing since surgery. Epicardial bipolar ventricular wire removed without difficulty. Bedrest and VS [id number] x 1 hour.
--- NOTE | 2024-09-29 08:50 | PTCARENOTE ---
CT REHABILITATION AIDE at bedside and V wires cut by CTNP; CT x2 and Cordis removed per CT REHABILITATION AIDE orders.
--- NOTE | 2024-09-29 12:02 | PTCARENOTE ---
Assessment unchanged; NSR on monitor and VSS; pt ambulating hallways with RN.
[2024-09-29] MEDS: FERRLECIT 110 MG IV (13:16)
[2024-09-29] MEDS: NSS IV (16:19)
--- NOTE | 2024-09-29 16:29 | PTCARENOTE ---
NSR on monitor and VSS; assessment unchanged; pt ambulating hallway with RN; pt resting comfortably in chair awaiting dinner.
--- NOTE | 2024-09-29 20:18 | PTCARENOTE ---
Received pt from previous RN; ambulated in gil [address], pt AAOx3 NSR on monitor and VSS; PIV x1 patent; Lungs diminished; IS to 1500; positive bowel sounds; pt voiding yellow urine; palpable pulses throughout; trace edema noted; all surgical sites
C/D/I; CT dressing changed. plan of care discussed questions encouraged.
[2024-09-29] MEDS: SENOKOT-S 1 TABLET PO (20:51)
--- NOTE | 2024-09-30 00:08 | PTCARENOTE ---
pt resting comfortably in bed, VSS, NSR per tele monitor, assessment remains unchanged
[2024-09-30 02:18] LABS: Hematocrit 26.3 % (39.0-52.0); Hemoglobin 8.9 g/dL (13.0-18.0); Mean Corp Hgb Conc. 33.8 g/dL (33.0-37.0); Mean Corpuscular Volume 103.5 fL (80.0-94.0); Mean Platelet Volume 10.2 fL (7.4-10.4); Platelet Count 151 10^3/uL (130-400); Red Blood Cell Count 2.54 10^6/uL (4.70-6.10); Red Cell Dist. Width 12.9 % (11.5-14.5); White Blood Cell Count 11.4 10^3/uL (4.8-10.8)
[2024-09-30 02:33] LABS: Blood Urea Nitrogen 25 mg/dl (9-20); Calcium 9.6 mg/dl (8.4-10.2); Carbon Dioxide 24 mmol/L (22-30); Chloride 106 mmol/L (98-107); Estimated Creatinine Clearance 73 ml/min; Glucose 122 mg/dl (70-99); Magnesium 2.2 mg/dl (1.6-2.3); Potassium 4.3 mmol/L (3.5-5.1); Sodium 139 mmol/L (135-145); eGFR > 60.00
[2024-09-30 03:51] VITALS: BP 111/92
[2024-09-30 03:56] VITALS: BP 105/54
--- NOTE | 2024-09-30 04:24 | PTCARENOTE ---
routine labs obtained, VSS, NSR per tele monitor assessment remains unchanged
--- NOTE | 2024-09-30 04:32 | W.PN.CT ---
Today's Communication / Plan
-
Plan:
-No major issues overnight. Hemodynamically and neurologically intact
-Off all drips
-F/U 2-view cx
-H/H stable @ 8.9/26.3
-Thrombocytopenia has resolved, 151 K
-Cont. current meds (ASA, Plavix, Lopressor, Amio, Lipitor, Protonix, Lexapro)
-Monitor Qt on Amio and Lexapro
-Encourage IS, OOB
-Ambulate
-Home today
Assessment / Plan
-
- Severe aortic valve stenosis with bicuspid valve morphology/1v-CAD - s/p Surgical aortic valve replacement [29 mm Goodrich Inspiris Resilia bioprosthesis]; CABG x 1 [aorta to RSVG to large diagonal]
on 09/26/[address] Huerta, pod #4
- Intraop ROBBIE: LVEF 65% pre and postop with no regional wma. He had moderate LVH. His aortic valve had a low mean gradient and only trace intra valvular AI postop.
- Severe aortic valve stenosis, bicuspid valve morphology, type I with heavily fused left right
- Single-vessel coronary artery disease
- Hyperlipidemia
- Hypertension
- Stage 1 obesity (BMI 33)
- Moderate LVH
- Osteoarthritis
- ED
- Nephrolithiasis
- Acute postop blood loss anemia
- Acute postop coagulopathy/ thrombocytopenia - s/p Protamine x2, 2 unit platelets, DDAVP, 2 FFPs, 1 cryo
- Acute postop atelectasis
- Acute postop hypovolemia with subsequent hypervolemia
Discussed patient care with: Cardiology, Nursing, Respiratory Therapy, Pharmacy and Care Team
Subjective
-
Date of Service: September 30, 2024
Pt c/o incisional pain, otherwise feels well. Ambulating halls without difficulty
Objective Data
-
Lab Results
09/30/24 02:04
09/30/24 02:04
PT 18.9 Sec (11.4-14.6) H 09/26/24 15:44
INR 1.53 09/26/24 15:44
APTT 33.7 Sec (23.4-35.0) 09/26/24 15:44
Vital Signs
Vital Signs
Temp Pulse Resp BP Pulse Ox
98.9 F 75 18 105/54 96
09/30/24 04:20 09/30/24 04:00 09/30/24 04:20 09/30/24 03:56 09/30/24 04:20
CT Intake/Output/Weight
09/29/24 09/29/24 09/30/24
06:59 18:59 06:59
Intake Total 120 / 790 590 / 590
Output Total 1045 / 2570
Balance -925 / -1780 590 / 590
SaO2: 96 (RA)
Physical Exam
-
General: Awake, Oriented and AOx3
Cardiovascular: Regular rate & rhythm, No Murmurs, No Rub and No Gallop
Respiratory: Decreased Breath Sounds (at bases, otherwise clear)
Sternum: Stable
Incision: Clean, Dry, Intact and Dressing Intact
Extremities: Other (+trace edema)
Data Reviewed
-
Lab Results: Results Reviewed
Medications: Active Meds Reviewed
Chest X-Ray: Report Reviewed and Image Reviewed
ECG: Report Reviewed and Image Reviewed
[2024-09-30 05:49] VITALS: BMI 32.1
[2024-09-30] MEDS: TYLENOL 1000 MG PO (05:49)
[2024-09-30 06:52] LABS: B.E. - POC -2.1 mmol/L; Glucose - POC 126 mg/dl (70-99); HCO3 - POC 24 mmol/L (21-28); Hematocrit - POC 33 % PCV (42-52); Hemodilution- POC Yes; Hemoglobin Calculated - POC 11.2; Ionized Calcium - POC 1.22 mmol/L (1.15-1.33); Lactate - POC 2.39 mmol/L (0.36-0.75); PCO2 - POC 46 mmHg (35-48); PO2 - POC 413 mmHg (83-108); Sodium - POC 142 mmol/L (136-145); Specimen Type - POC Arterial; pH - POC 7.33 (7.35-7.45)
[2024-09-30 07:56] VITALS: BP 113/58
[2024-09-30] MEDS: PLAVIX 75 MG PO (07:59)
[2024-09-30] MEDS: LOPRESSOR 12.5 MG PO ×2 (07:59→10:05)
[2024-09-30] MEDS: MAGNESIUM OXIDE 500 MG PO (07:59)
[2024-09-30] MEDS: MUCINEX 1200 MG PO (07:59)
[2024-09-30] MEDS: LIPITOR 80 MG PO (07:59)
[2024-09-30] MEDS: PROTONIX 40 MG PO (07:59)
[2024-09-30] MEDS: NEURONTIN 100 MG PO (07:59)
[2024-09-30] MEDS: BACTROBAN 2% OINTMENT 1 APPLIC NASAL (08:00)
[2024-09-30] MEDS: LIDOCAINE 4% PATCH TOPICAL (08:00)
[2024-09-30] MEDS: LEXAPRO 10 MG PO (08:00)
[2024-09-30] MEDS: LOW STRENGTH ASPIRIN 81 MG PO (08:00)
[2024-09-30] MEDS: PACERONE 200 MG PO (08:00)
[2024-09-30] MEDS: SENOKOT-S 1 TABLET PO (08:00)
--- NOTE | 2024-09-30 08:21 | PTCARENOTE ---
assumed care of pt from previous shift RN, sinus rhythm on tele, VSS, + peripheral pulses, trace edema. Lungs diminished, pox 98% on RA, coughing and deep breathing encouraged. +bs, tolerating PO intake, voids spontaneously, post op sites stable.
Plan of care reviewed w the pt and questions encouraged.
--- NOTE | 2024-09-30 08:37 | PTCARENOTE ---
2 view CXR completed.
--- NOTE | 2024-09-30 08:39 | W.PN.CD ---
Today's Communication / Plan
-
-Clinically stable; no events on telemetry.
-Continue current medications (ASA/Plavix, statin, BB).
-Outpatient follow-up with primary Cubing Machine Tender (Dr. Rincon).
Impression / Plan
-
74 y/o male with HTN, HLD, preDM, CAD, and severe is now s/p AVR/CABG.
Severe (bicuspid) and CAD s/p CABG x 1 (aorta to RSVG to large diagonal), AVR (29 mm bioprosthesis), and MARK exclusion 09/26/24, Dr. Huerta
-Clinically stable; no events on telemetry.
-Continue current medications (ASA/Plavix, statin, BB).
-Outpatient follow-up with primary Cubing Machine Tender (Dr. Rincon).
HTN:
-Stable/controlled.
HLD:
-On high-dose atorvastatin 80 mg daily.
Subjective:
No major events overnight. No cardiac complaints this a.m.
Physical Exam
Vital Signs/Labs
Vital Signs
Temp Pulse Resp BP Pulse Ox
98.2 F 83 16 113/58 98
09/30/24 08:00 09/30/24 08:00 09/30/24 08:00 09/30/24 07:56 09/30/24 08:35
09/29/24 09/30/24 10/01/24
06:59 06:59 06:59
Actual Weight 103.6 kg 104.3 kg
09/30/24 02:04
09/30/24 02:04
PT 18.9 Sec (11.4-14.6) H 09/26/24 15:44
INR 1.53 09/26/24 15:44
APTT 33.7 Sec (23.4-35.0) 09/26/24 15:44
Magnesium 2.2 mg/dl (1.6-2.3) 09/30/24 02:04
Physical Exam
Constitutional: No acute distress
EENT: Anicteric
Cardiovascular: Rhythm & rate is regular, Pedal edema is absent, Systolic murmur absent and S1S2 is normal
Respiratory: Respiratory effort normal and Lungs clear to auscul.
GI: Soft
Neuro/Psych: AO x 3
Other: Skin (Warm, dry, intact)
Data Reviewed
-
Date of Service: September 30, 2024
EKG: Tracing Personally Visualized and interpreted (Telemetry: Sinus rhythm)
Medical Tests (PFT, Pathology etc): Discussed with Patient
Labs: Labs Reviewed by me
--- NOTE | 2024-09-30 09:10 | W.DCSUMMARY ---
Discharge Summary
Discharge Data
Date of Admission: 09/26/24
Date of Discharge: 09/30/24
-
Pending Results: No
Hospital Course
Primary care physician: Shanon Rios
Outpatient profiling machine set up operator: Jaun Rincon
Inpatient consultants: [facility] cardiology, pulmonary auto battery builder
Procedures:
1. Aortic valve replacement, CABG, left atrial appendage exclusion
Primary Diagnosis:
1. Bicuspid aortic valve with severe aortic stenosis
Secondary Diagnoses:
1. Single-vessel coronary artery disease
2. Hypertension
3. Hyperlipidemia
4. Osteoarthritis
5. Class I obesity
6. Acute surgical blood loss anemia
7. Acute postop coagulopathy
8. Chronic periodontal disease
HPI: 74 year old male electively admitted 09/26/24 for AVR/CABG due to bicuspid aortic valve with severe aortic stenosis and single-vessel coronary artery disease (diagonal stenosis)
Hospital course: Patient underwent aortic valve replacement # 29 mm bioprosthetic, CABG x 1 (SVG to diagonal), left atrial appendage occlusion number [address] Damian Huerta. Patient arrived to CVICU with 160 cc drainage from chest tubes.
ACT was 142, therefore patient received 2 platelets, 2 FFP, DDAVP 50 mcg, 1 cryo (fibrinogen 184) and PEEP increased to 10 to control bleeding. Patient remained hemodynamically stable and bleeding subsided. Patient was extubated 2100 on the day of
surgery. Levophed was weaned off on postoperative day #1 and beta-jaswinder resumed. Aspirin and Plavix were initiated. Lipitor dose was increased to high intensity 80 mg daily. Patient was diuresed with 40 mg of IV Lasix with excellent diuresis
of 1700 cc. Chest tubes were maintained on postoperative day #2 as patient had 185 cc output in 12 hours. Patient was again diuresed. On postoperative day #3, temporary pacing wires were clipped and chest tube was removed. Patient ambulated in
gil with cardiac rehab and was deemed stable for discharge to home destination. On postoperative day #4, Lopressor was increased to 25 mg BID to prevent atrial fibrillation as heart rate in the high 80s. This will be converted to Toprol on
discharge. SBP 113mmHg, SR @ 88, Hb 8.9, creatinine 1.1 on day of discharge. A two-view chest x-ray reported no pneumothorax or significant pleural effusion. Valsartan was not resumed on discharge as his blood pressure was low normal range while
hospitalized. Patient may continue chronic doxycycline for periodontal disease. He will be seen by transitional care nurse post discharge and will follow-up with Dr. Huerta in 4 weeks.
Home medication changes:
Stop Valsartan as BP low normal range
Lipitor increased from 10 mg to 80 mg daily (high intensity s/p cabg)
Discharge Plan
-
Patient Disposition: Home (Routine Discharge)
Discharge Diagnosis/Procedures: 09/26 AVR, CABG, left atrial appendage clip
Condition: Good
Diet: Low Cholesterol and Low Sodium
Activity: No strenuous activity
Driving Restrictions: Not until seen by your Dr
Bathing Restrictions: OK to Shower
Other Services: Cardiac Rehab
Specialty Instructions: Weigh Daily- Call MD for wt gain/loss 3 lbs overnight/5 lbs in 1 week
Referrals:
CT Transitional Care Nurse [Outside] (The Cardiothoracic Transitional Care Nurse will call you to set up a visit in 1-2 days.)
Jaun Rincon MD [Active] - 11/20/24 1:00 pm
Damian Huerta MD [Active] - 10/30/24 1:30 pm
Shanon Rios CRNP [Family Provider] -
Prescriptions:
New
atorvastatin 80 mg Tablet
80 mg PO DAILY Qty: 30 2RF
acetaminophen 325 mg Tablet
650 mg PO Q4HPRN PRN (Reason: mild pain,headache,temp >101F ) Qty: 0 0RF
clopidogrel 75 mg Tablet
75 mg PO DAILY Qty: 30 2RF
pantoprazole 40 mg Tablet,Delayed Release (/Ec)
40 mg PO DAILY Qty: 30 2RF
oxycodone 5 mg Tablet
5 mg PO Q4HPRN PRN (Reason: severe pain) Qty: 10 0RF
metoprolol succinate [Toprol XL] 50 mg tablet extended release 24 hr
50 mg PO DAILY Qty: 30 1RF
Continued
escitalopram oxalate 10 mg Tablet
10 mg PO DAILY
cholecalciferol (vitamin D3) [Vitamin D3] 25 mcg (1,000 unit) Tablet
25 mcg PO DAILY
aspirin [Noa Chewable Aspirin] 81 mg Tablet,Chewable
81 mg PO DAILY
doxycycline hyclate 20 mg Tablet
20 mg PO BID Qty: 0 0RF
Discontinued
atorvastatin 10 mg Tablet
10 mg PO DAILY
valsartan 80 mg Tablet
80 mg PO DAILY
Discharge Orders:
Discharge Patient (As Directed); Ordered 09/30/24
Ordered By: Julia Brar
Care Plan Goals
Care Plan Goals:
Problem: Readiness for enhanced knowledge related to diagnosis and treatment plan
Goal: Understand your diagnosis and treatment plan needs, including medications if applicable.
Instructions: Know your diagnosis, underlying causes and treatment plan options, including medications if applicable. Consult with your health care team to learn about your diagnosis and treatment plan, including medications if applicable.
Discharge Date and Time
Print Language: NIUEAN
[2024-09-30 10:19] VITALS: BP 113/62
--- NOTE | 2024-09-30 10:21 | PTCARENOTE ---
pt tolerated shower
[2024-09-30 10:26] VITALS: BP 159/66
[2024-09-30 10:43] VITALS: BP 113/62; BP 159/66; PULSE 79; O2SAT 98
--- NOTE | 2024-09-30 10:49 | CM ---
Reviewed chart. Met with and Mrs. Pabon to review discharge plans. He states he is feeling well and maybe able to go home soon. He states prior to admission he resides with his spouse in a spilt level home with two steps to enter. His spouse
has rented an easy lift chair for him to use on the fist floor. He is planning on staying on the first floor and only go up to sleep and shower. He states he has been ambulating here fine. He states he does not have any DME in the home. He
states he has a prescription plan and uses [facility]. We reviewed a home visit by the Transitional Care Nurse. He is agreeable to a home visit. Medical work-up in progress. The discharge plan is to return home with his spouse and a home visit
by the Transitional Care Nurse when medically stable.
--- NOTE | 2024-09-30 11:41 | PTCARENOTE ---
IV line and tele monitor removed. Discharge instructions, medication list and follow up appointments reviewed w the pt and his . Questions encouraged.
== END 2024-09-30 11:33 | disposition home or self-care (01) | DRG 220 ==
LOC: CVICU 07:40
PROVIDERS: Anesthesiology; Nurse Practitioner; Physician Assistant Medical; ADMITTING PHYSICIAN Thoracic Surgery (Cardiothoracic Vascular Surgery); CONSULT PHYSICIAN Internal Medicine Critical Care Medicine
PROC: 021009W Bypass Coronary Artery, One Artery from Aorta with Autologous Venous Tissue, Open Approach (ICD-10-PCS; 2024-09-26)
PROC: 30233R1 Transfusion of Nonautologous Platelets into Peripheral Vein, Percutaneous Approach (ICD-10-PCS; 2024-09-26)
PROC: 30233K1 Transfusion of Nonautologous Frozen Plasma into Peripheral Vein, Percutaneous Approach (ICD-10-PCS; 2024-09-26)
PROC: 02L70CK Occlusion of Left Atrial Appendage with Extraluminal Device, Open Approach (ICD-10-PCS; 2024-09-26)
PROC: 02RF08Z Replacement of Aortic Valve with Zooplastic Tissue, Open Approach (ICD-10-PCS; 2024-09-26)
PROC: 5A1221Z Performance of Cardiac Output, Continuous (ICD-10-PCS; 2024-09-26)
PROC: B24BZZ4 Ultrasonography of Heart with Aorta, Transesophageal (ICD-10-PCS; 2024-09-26)
PROC: 06BP4ZZ Excision of Right Saphenous Vein, Percutaneous Endoscopic Approach (ICD-10-PCS; 2024-09-26)
DX: I35.0 Nonrheumatic aortic (valve) stenosis (principal); D62 Acute posthemorrhagic anemia; D68.9 Coagulation defect, unspecified; J98.11 Atelectasis; I25.10 Atherosclerotic heart disease of native coronary artery without angina pectoris; E78.5 Hyperlipidemia, unspecified; M19.90 Unspecified osteoarthritis, unspecified site; R73.09 Other abnormal glucose; D69.59 Other secondary thrombocytopenia; E83.51 Hypocalcemia; I11.9 Hypertensive heart disease without heart failure; F41.1 Generalized anxiety disorder; E66.811 Obesity, class 1; K05.6 Periodontal disease, unspecified; R05.3 Chronic cough; E86.1 Hypovolemia; E87.70 Fluid overload, unspecified; Z68.32 Body mass index [BMI] 32.0-32.9, adult; Z79.82 Long term (current) use of aspirin; Z79.899 Other long term (current) drug therapy; Z82.49 Family history of ischemic heart disease and other diseases of the circulatory system; Z87.891 Personal history of nicotine dependence
CPT/HCPCS: 88304; 88311; 36415; 71045; 71046; 80048; 80053; 81003; 81015; 82248; 82330; 82565; 82805; 82810; 82947; 82962; 83036; 83735; 84132; 84302; 84520; 85014; 85018; 85025; 85027; 85049; 85347; 85384; 85576; 85610; 85730; 86850; 86900; 86901; 86920; 87070; 93005; 93312; 93320; 93325; 93880; 94002; J2597; J2916; P9012; P9047; P9059; P9073

== ENCOUNTER 2024-12-02 06:16 | Day surgery (SDC) | payer MEDICARE, OTHER, SELFPAY ==
[2024-12-02 07:30] VITALS: BMI 31.4
[2024-12-02 07:35] VITALS: BP 178/85
[2024-12-02 07:55] VITALS: BMI 31.4
[2024-12-02] MEDS: NORMOSOL-R/PLASMALYTE-A 1000 IV (07:57)
[2024-12-02 09:26] VITALS: BP 131/62
[2024-12-02 09:30] VITALS: BP 122/63
[2024-12-02 09:45] VITALS: BP 121/58
[2024-12-02 10:00] VITALS: BP 124/56
== END 2024-12-02 10:28 | disposition home or self-care (01) ==
LOC: SDS 06:16
PROVIDERS: ATTENDING PHYSICIAN Orthopaedic Surgery Hand Surgery
DX: S62.634A Displaced fracture of distal phalanx of right ring finger, initial encounter for closed fracture (principal); S56.119A Strain of flexor muscle, fascia and tendon of finger of unspecified finger at forearm level, initial encounter; X58.XXXA Exposure to other specified factors, initial encounter
CPT/HCPCS: 26765; A4570